=== PATIENT | female | born 1995 | race Caucasian/White ===

== ENCOUNTER 2017-06-18 21:05 | Inpatient (IN) | payer BC, OTHER ==
[~2017-06-18] VITALS: Ht 167.6 cm; Wt 76.7 kg
[~2017-06-18 21:05] MED LIST: FERR-193 PO; IBUP-974 PO; PREN-385 PO
[2017-06-18 21:10] VITALS: BP 106/56
--- NOTE | 2017-06-18 23:08 | NUR ---
PT TAKEN TO BED 3
--- NOTE | 2017-06-18 23:13 | NUR ---
Dr. Negrete evaluating patient at bedside.
--- NOTE | 2017-06-18 23:15 | NUR ---
22Y/F PT. PRESENTS TO ED WITH C/O GENERALIZED WEAKNESS X 1 WK. PT. IUP 9 WKS, N/V. NO MEDICAL HX, AAO X4, AMBULATORY WITH STEADY GAIT, GCS 15. RESPIRATIONS ROOM AIR, EVEN AND UNLABORED. ABDOMEN SOFT, NON TENDER, PT. GENERALIZED WEAKNESS. VSS, ER MADE AWARE OFPT. STATUS.
--- NOTE | 2017-06-18 23:15 | NUR ---
PER DR. ARSHAD, CHANGE NSS 1000 ML IV 100 ML/HR TO WIDE OPEN
[2017-06-18] MEDS ORDERED: NACL 0.9% 1,000 ML IV ONE (23:30)
[2017-06-19] LABS: BASOPHILS # (AUTO) 0.3 K/uL (0.00-0.22); EOSINOPHILS # (AUTO) 0.1 K/uL (0-0.4)
[2017-06-19 00:02] LABS: BASOPHILS % (AUTO) 3.3 % (0.0-2.0); EOSINOPHILS % (AUTO) 0.6 % (0.0-4.0); HEMOGLOBIN 14.1 g/dL (12.0-16.0); LYMPHOCYTES # (AUTO) 1.9 K/uL (2.5-16.5); LYMPHOCYTES % (AUTO) 20.2 % (20.5-51.1); MEAN CORPUSCULAR HEMOGLOBIN 28 pg (27-31); MEAN CORPUSCULAR HGB CONC 34 g/dL (33-37); MEAN CORPUSCULAR VOLUME 84 fL (80-94); MONOCYTES # (AUTO) 0.6 K/uL (0.8-1.0); MONOCYTES % (AUTO) 5.8 % (1.7-9.3); NEUTROPHILS # (AUTO) 6.6 K/uL (1.8-7.7); NEUTROPHILS % (AUTO) 70.1 % (42.2-75.2); PLATELET COUNT (AUTO) 182 K/uL (140-450); RED BLOOD CELL COUNT(AUTO) 4.99 MIL/uL (4.20-5.40); WHITE BLOOD COUNT (AUTO) 9.5 K/uL (4.8-10.8)
--- NOTE | 2017-06-19 00:08 | NUR ---
PT TAKEN TO ULTRASOUND
[2017-06-19 00:19] LABS: ALBUMIN 3.4 g/dL (3.4-5.0); ANION GAP 7.6 (8-16); CREATININE 1.9 mg/dL (0.6-1.3); TOTAL BILIRUBIN 1.2 mg/dL (0.0-1.0)
[2017-06-19 00:23] LABS: CARBON DIOXIDE 42.5 mmol/L (21-32); POTASSIUM 2.1 mmol/L (3.5-5.1)
[2017-06-19] MEDS ORDERED: POTASSIUM CHL 20 MEQ / DEXT 5% 1,000 ML IV ONE (00:30)
--- NOTE | 2017-06-19 01:00 | NUR ---
PT. BACK FROM US
[2017-06-19] MEDS ORDERED: ONDANSETRON 4 MG/2 ML VIAL IVP ONE (01:35)
[2017-06-19] MEDS ORDERED: HYDROcodone/APAP 7.5/325 MG 1 TAB PO PRN (01:55)
[2017-06-19] MEDS ORDERED: MORPHINE SULFATE 2 MG/ML SYR IVP PRN (01:55)
[2017-06-19] MEDS ORDERED: POTASSIUM CHLORIDE 10 MEQ TABER PO ONE (01:55)
[2017-06-19] MEDS ORDERED: ACETAMINOPHEN 325 MG TAB PO PRN (01:55)
[2017-06-19] MEDS ORDERED: DOCUSATE SODIUM 100 MG GELCAP PO PRN (01:55)
--- NOTE | 2017-06-19 02:00 | NUR ---
Patient appears to be resting comfortably in bed. Vital Signs within normal limits. Respirations even and unlabored.
[2017-06-19] MEDS ORDERED: POTASSIUM CHLORIDE 20% 40 MEQ/15 ML UDC PO ONE (02:15)
[2017-06-19] MEDS ORDERED: KCL 20 MEQ/WATER INJ PREMIX 200 ML IV ONE (02:15)
[2017-06-19 02:39] LABS: PROTHROMBIN TIME 11.1 secs (10.8-13.4)
[2017-06-19 02:46] LABS: CHOL/HDL RATIO 6.8 (1-4.5); FREE T4 (FREE THYROXINE) 6.6 ng/dL (0.76-1.46); MAGNESIUM 2.9 mg/dL (1.8-2.4); PHOSPHORUS 3.7 mg/dL (2.5-4.9); THYROID STIMULATING HORMONE 0.01 uIU/mL (0.34-3.74)
[2017-06-19] MEDS ORDERED: NACL 0.9% 1,000 ML IV ONE (02:50)
--- NOTE | 2017-06-19 03:40 | NUR ---
Patient will be admitted to care of MANDATORIAN. Admited to TELEMETRY. Will go to room 105A. Belongings list completed. Report to ZOFIA CORTEZ.
--- NOTE | 2017-06-19 03:55 | NUR ---
ADMITTED PATIENT TO THE TELE UNIT, PATIENT AWAKE ALERT ORIENTED X4, NO S/S OF DISTRESS NOTED ,RESPIRATION EVEN AND UNLABORED, IV PATENT AND INTACT, TELE MONITOR IN PLACE. ORIENTED PATIENT TO THE ROOM. PLAN OF CARE DISCUSSED, PATIENT VERBALIZED UNDERSTANDING. CALL LIGHT WITHIN REACH, SAFETY MEASURE ENSURED, WILL CONTINUE TO MONITOR.
[2017-06-19] MEDS: NACL 0.9% 1,000 ML IV SCH ×3 (03:57→20:17)
[2017-06-19 04:01] VITALS: BP 133/73
--- NOTE | 2017-06-19 05:12 | NUR ---
PATIENT WAS SLEEPING, BUT EASY TO AROUSE, NO S/S OF DISTRESS NOTED, RESPIRATION EVEN AND UNLABORED, CALL LIGHT WITHIN REACH, SAFETY MEASURE ENSURED, WILL CONTINUE TO MONITOR.
--- NOTE | 2017-06-19 06:08 | NUR ---
SECOND BAG OF POTASSIUM CHL 20 MEQ STARTED. PATIENT IS SLEEPING. NO S/S OF DISTRESS NOTED, RESPIRATION EVEN AND UNLABORED, CALL LIGHT WITHIN REACH, SAFETY MEASURE ENSURED, WILL CONTINUE TO MONITOR.
--- NOTE | 2017-06-19 06:36 | NUR ---
PATIENT HAS BEEN SCREENED AND CATEGORIZED HIGH NUTRITION RISK. PATIENT WILL BE SEEN WITHIN 1-2 DAYS OF ADMISSION. 06/19/17-06/20/17 PERLITA LINARES MS, RDN
[2017-06-19] MEDS ORDERED: MECLIZINE 25 MG TAB PO PRN (07:05)
[2017-06-19 07:16] LABS: BASOPHILS # (AUTO) 0.3 K/uL (0.00-0.22); BASOPHILS % (AUTO) 3.6 % (0.0-2.0); EOSINOPHILS # (AUTO) 0.1 K/uL (0-0.4); EOSINOPHILS % (AUTO) 1.6 % (0.0-4.0); HEMATOCRIT 34.5 % (36-48); HEMOGLOBIN 11.4 g/dL (12.0-16.0); LYMPHOCYTES % (AUTO) 26.2 % (20.5-51.1); MEAN CORPUSCULAR HEMOGLOBIN 28 pg (27-31); MEAN CORPUSCULAR HGB CONC 33 g/dL (33-37); MEAN CORPUSCULAR VOLUME 85 fL (80-94); NEUTROPHILS # (AUTO) 4.3 K/uL (1.8-7.7); NEUTROPHILS % (AUTO) 55.6 % (42.2-75.2); PLATELET COUNT (AUTO) 148 K/uL (140-450); RED BLOOD CELL COUNT(AUTO) 4.07 MIL/uL (4.20-5.40); RED CELL DISTRIBUTION WIDTH 12.3 % (11.6-13.7); WHITE BLOOD COUNT (AUTO) 7.7 K/uL (4.8-10.8)
--- NOTE | 2017-06-19 07:23 | NUR ---
ENDORSED PLAN OF CARE TO DAY RN. PATIENT RESTING IN BED, NO S/S OF DISTRESS NOTED, PATIENT IS IN STABLE CONDITION.
[2017-06-19 07:25] LABS: ANION GAP 6.9 (8-16); CARBON DIOXIDE 39.2 mmol/L (21-32); CREATININE 1.6 mg/dL (0.6-1.3); POTASSIUM 3.1 mmol/L (3.5-5.1)
--- NOTE | 2017-06-19 07:25 | NUR ---
RECEIVED REPORT FROM STRUCTURAL STEEL FITTER RN. PATIENT IS AAOX4. NO SIGNS AND SYMPTOMS OF ACUTE RESPIRATORY DISTRESS NOTED AT THIS TIME. PATIENT HAS IV D5 NORMAL SALINE INFUSING TO RIGHT AC 20G AT 120ML/HR. SITE IS CLEAN, DRY, PATENT AND INTACT. PATIENT HAS KCL INFUSING TO LEFT AC 20G AT 30 ML/HR. SITE IS CLEAN, DRY, PATENT AND INTACT. BED IN LOWEST POSITION SIDERAILS UP X2, CALL LIGHT PLACED WITHIN REACH. WILL CONTINUE TO MONITOR.
[2017-06-19 08:00] VITALS: BP 139/98
--- NOTE | 2017-06-19 09:52 | NUR ---
06/19/17 RD INITIAL ASSESSMENT COMPLETED PLEASE REFER TO NUTRITION ASSESSMENT UNDER CARE ACTIVITY FOR ESTIMATED NUTRITIONAL NEEDS. RD RECOMMENDATIONS: 1. CONTINUE NPO MEDICALLY APPROPRIATE PER MD. 2. PER MD DISCRETION, CONSIDER INITIATING ORAL NUTRITION CLEAR LIQUID DIET AND ADVANCE TOLERATED TO REGULAR DIET. 3. CONSULT RDN PRN. 4. RD WILL F/U 2-3 DAYS; HIGH RISK. PERLITA LINARES, MS, RDN
--- NOTE | 2017-06-19 12:09 | NUR ---
PATIENT REFUSED NOON VITAL SIGNS.
[2017-06-19 16:00] VITALS: BP 119/55
--- NOTE | 2017-06-19 19:40 | NUR ---
RECEIVED REPORT FROM AM RN AT BEDSIDE, PT IS AAOX4, ABLE TO FOLLOW COMMANDS AND MAKE NEEDS KNOWN. NO S/S OF DISTRESS, CLEAR LUNG SOUNDS, ON RA. DENIES CHEST PAIN, ST ON TELE MONITOR. SOFT ABDOMEN WITH ACTIVE BOWEL SOUNDS, CONTINENT WITH B&B'S, ABLE TO MOVE ALL EXTREMITIES, STABLE GAIT. PERIPHERAL LINE TO RIGHT AC 20GA RUNNING NS AT 120 ML/HR, PERIPHERAL LINE TO LEFT AC 20GA, SL. SKIN IS INTACT, WARM AND DRY TO TOUCH. VSS, DENIES PAIN. SAFETY PRECAUTION IN PLACE, WILL CONTINUE TO MONITOR.
[2017-06-19 20:00] VITALS: BP 124/69
[2017-06-19] MEDS ORDERED: ZOLPIDEM 5 MG TAB PO SCH (21:00)
[2017-06-19 21:28] LABS: BILIRUBIN,URINE NEGATIVE (NEGATIVE); BLOOD, URINE NEGATIVE (NEGATIVE); COLOR,URINE YELLOW (YELLOW); LEUKOCYTE ESTERASE ,URINE 1+ (NEGATIVE); NITRITE, URINE NEGATIVE (NEGATIVE); PH,URINE 7.5 (5.0-9.0); UGLUCOSE TRACE (NEGATIVE)
[2017-06-19 21:29] LABS: APPEARANCE,URINE HAZY (CLEAR)
[2017-06-19 21:51] LABS: RBC,URINE NONE SEEN /HPF (0-5)
[2017-06-20] VITALS: BP 138/78
--- NOTE | 2017-06-20 00:20 | NUR ---
PT IS NAUSEATED AND VOMITING SMALL AMOUNT OF EMESIS, ZOFRAN GIVEN, WILL CONTINUE TO MONITOR.
[2017-06-20 04:00] VITALS: BP 120/62
--- NOTE | 2017-06-20 04:00 | NUR ---
PT IS ASLEEP IN BED, NO CHANGE OF CONDITION AT THIS TIME, VSS.
[2017-06-20] MEDS: NACL 0.9% 1,000 ML IV SCH ×3 (05:59→22:21)
[2017-06-20 06:54] LABS: BASOPHILS # (AUTO) 0.2 K/uL (0.00-0.22); BASOPHILS % (AUTO) 3.1 % (0.0-2.0); EOSINOPHILS # (AUTO) 0.2 K/uL (0-0.4); EOSINOPHILS % (AUTO) 2.8 % (0.0-4.0); HEMATOCRIT 30.8 % (36-48); HEMOGLOBIN 10.1 g/dL (12.0-16.0); LYMPHOCYTES # (AUTO) 1.5 K/uL (2.5-16.5); LYMPHOCYTES % (AUTO) 24.1 % (20.5-51.1); MEAN CORPUSCULAR HEMOGLOBIN 28 pg (27-31); MEAN CORPUSCULAR HGB CONC 33 g/dL (33-37); MEAN CORPUSCULAR VOLUME 85 fL (80-94); MONOCYTES # (AUTO) 0.7 K/uL (0.8-1.0); MONOCYTES % (AUTO) 10.6 % (1.7-9.3); NEUTROPHILS # (AUTO) 3.7 K/uL (1.8-7.7); NEUTROPHILS % (AUTO) 59.4 % (42.2-75.2); PLATELET COUNT (AUTO) 120 K/uL (140-450); RED BLOOD CELL COUNT(AUTO) 3.62 MIL/uL (4.20-5.40); RED CELL DISTRIBUTION WIDTH 12.1 % (11.6-13.7); WHITE BLOOD COUNT (AUTO) 6.3 K/uL (4.8-10.8)
--- NOTE | 2017-06-20 07:15 | NUR ---
REPORT GIVEN TO AM RN AT BEDSIDE FOR CONTINUE OF CARE, PT IS IN STABLE CONDITION AT THIS TIME.
--- NOTE | 2017-06-20 07:15 | NUR ---
RECEIVED REPORT FROM DIRT BIKE MECHANIC RN. PATIENT IS AAOX4. NO SIGNS AND SYMPTOMS OF ACUTE RESPIRATORY DISTRESS NOTED AT THIS TIME. PATIENT HAS IV D5 NORMAL SALINE INFUSING TO RIGHT AC 20G AT 120ML/HR. SITE IS CLEAN, DRY, PATENT AND INTACT. PATIENT HAS KCL INFUSING TO LEFT AC 20G AT 30 ML/HR. SITE IS CLEAN, DRY, PATENT AND INTACT. BED IN LOWEST POSITION SIDERAILS UP X2, CALL LIGHT PLACED WITHIN REACH. WILL CONTINUE TO MONITOR.
[2017-06-20 07:22] LABS: ANION GAP 5.2 (8-16); CARBON DIOXIDE 36.6 mmol/L (21-32); CREATININE 1.1 mg/dL (0.6-1.3)
[2017-06-20 07:45] LABS: POTASSIUM 2.8 mmol/L (3.5-5.1)
[2017-06-20 08:00] VITALS: BP 117/62
[2017-06-20] MEDS ORDERED: POTASSIUM CHLORIDE 40 MEQ, LIDOCAINE 1% 25 MG in NACL 0.9% 250 ML IV SCH (08:00)
[2017-06-20] MEDS: ONDANSETRON 4 MG/2 ML VIAL IVP PRN ×3 (08:03→17:05)
--- NOTE | 2017-06-20 09:30 | NUR ---
PATIENT VOMITING, WILL ADMINISTER IV ZOFRAN. NO SIGNS AND SYMPTOMS OF DISTRESS NOTED AT THIS TIME. WILL CONTINUE TO MONITOR.
[2017-06-20] MEDS ORDERED: MULTIVIT/MIN/CA/FE/FA 1 TAB PO SCH (10:00)
[2017-06-20 12:00] VITALS: BP 125/61
--- NOTE | 2017-06-20 12:15 | NUR ---
PATIENT RESTING IN BED. WILL CONTINUE TO MONITOR.
[2017-06-20] MEDS: PYRIDOXINE 50 MG TAB PO SCH ×2 (13:00→17:00)
--- NOTE | 2017-06-20 14:00 | NUR ---
PATIENT STATING THAT HER IV HURTS. WILL START A NEW IV SITE.
--- NOTE | 2017-06-20 14:30 | NUR ---
NEW IV STARTED TO RIGHT HAND. IV SITE CLEAN, DRY, PATENT AND INTACT.
--- NOTE | 2017-06-20 14:51 | NUR ---
CM NOTE PER TECHNICAL ASSOC SONIA, NO CUSTOMS OFFICER ASSIGNED YET BUT TO SEND REVIEWS TO [facility] FAX# [phone] # [phone] OPTION 1. INITIAL REVIEW FAXED TO [phone] # [phone] OPTION 1.
[2017-06-20 16:00] VITALS: BP 120/69
--- NOTE | 2017-06-20 17:05 | NUR ---
PATIENT VOMITING AGAIN. WILL ADMINISTER ZOFRAN.
--- NOTE | 2017-06-20 19:27 | NUR ---
ENDORSED PATIENT TO NURSERY ATTENDANT RN FOR CONTINUITY OF CARE. PATIENT IN STABLE CONDITION.
--- NOTE | 2017-06-20 19:28 | NUR ---
PATIENT REPORT RECEIVED FROM MORNING NURSE AT BEDSIDE. PATIENT IS AWAKE, ALERT, AND ORIENTED. NO SIGNS AND SYMPTOMS OF DISTRESS NOTED. NO COMPLAINTS OF PAIN AT THIS TIME. FAMILY MEMBER PRESENT AT BEDSIDE. BED IN FOWLERS POSITION, SIDE RAILS UP AND CALL LIGHT WITHIN REACH. WILL CONTINUE TO MONITOR.
[2017-06-20 20:00] VITALS: BP 111/56
--- NOTE | 2017-06-20 23:00 | NUR ---
PATIENT COMPLAINED OF INSOMNIA. DR. CARRERA NOTIFIED. ORDERS RECEIVED.
[2017-06-20] MEDS ORDERED: diphenhydrAMINE 50 MG/ML VIAL IVP SCH (23:20)
[2017-06-21] VITALS: BP 119/54
--- NOTE | 2017-06-21 02:15 | NUR ---
CHECKED ON PATIENT. PATIENT IS ASLEEP, NO SIGNS AND SYMPTOMS OF DISTRESS NOTED. BREATHING EVEN AND UNLABORED. BED IN LOWEST POSITION, SIDE RAILS UP AND CALL LIGHT WITHIN REACH. WILL CONTINUE TO MONITOR.
[2017-06-21 04:00] VITALS: BP 117/60
[2017-06-21] MEDS: NACL 0.9% 1,000 ML IV SCH ×2 (07:02→15:27)
--- NOTE | 2017-06-21 07:10 | NUR ---
RECEIVED PATIENT REPORT AT BEDSIDE. PATIENT ASLEEP BUT EASILY AROUSABLE. NO S/S OF DISTRESS NOTED. NO C/O PAIN. NO ACTIVE VOMITING AT THIS TIME. IV LINE NOTED ON THE RIGHT HAND WITH IVF INFUSING WELL. PATIENT ON TELE MONITORING. BED LOWERED WITH CALL LIGHT WITHIN REACH. WILL CONTINUE TO MONITOR
--- NOTE | 2017-06-21 07:13 | NUR ---
PATIENT REPORT GIVEN TO MORNING NURSE. PATIENT IS IN STABLE CONDITION
[2017-06-21 07:52] VITALS: BP 117/59
[2017-06-21] MEDS ORDERED: POTASSIUM CHLORIDE 40 MEQ, LIDOCAINE 1% 25 MG in NACL 0.9% 250 ML IV SCH (08:00)
[2017-06-21] MEDS ORDERED: POTASSIUM CHLORIDE 10 MEQ TABER PO SCH (08:00)
[2017-06-21] MEDS ORDERED: FOLIC ACID 1 MG TAB PO SCH (09:00)
[2017-06-21] MEDS ORDERED: MULTIVIT/MIN/CA/FE/FA 1 TAB PO SCH (09:00)
[2017-06-21] MEDS: PYRIDOXINE 50 MG TAB PO SCH ×3 (09:01→17:37)
[2017-06-21 10:32] LABS: ANION GAP 7.9 (8-16); CREATININE 1.1 mg/dL (0.6-1.3)
[2017-06-21 10:33] LABS: RED BLOOD CELL COUNT(AUTO) 3.26 MIL/uL (4.20-5.40); WHITE BLOOD COUNT (AUTO) 6.4 K/uL (4.8-10.8)
[2017-06-21 10:34] LABS: BASOPHILS % (AUTO) 0.7 % (0.0-2.0); EOSINOPHILS # (AUTO) 0.2 K/uL (0-0.4); EOSINOPHILS % (AUTO) 3.3 % (0.0-4.0); HEMATOCRIT 27.7 % (36-48); HEMOGLOBIN 9.3 g/dL (12.0-16.0); LYMPHOCYTES # (AUTO) 1.3 K/uL (2.5-16.5); LYMPHOCYTES % (AUTO) 20.7 % (20.5-51.1); MEAN CORPUSCULAR HEMOGLOBIN 29 pg (27-31); MEAN CORPUSCULAR HGB CONC 34 g/dL (33-37); MEAN CORPUSCULAR VOLUME 85 fL (80-94); MONOCYTES # (AUTO) 0.5 K/uL (0.8-1.0); MONOCYTES % (AUTO) 8.4 % (1.7-9.3); NEUTROPHILS # (AUTO) 4.3 K/uL (1.8-7.7); NEUTROPHILS % (AUTO) 66.9 % (42.2-75.2); PLATELET COUNT (AUTO) 114 K/uL (140-450)
[2017-06-21 10:54] LABS: POTASSIUM 2.9 mmol/L (3.5-5.1)
--- NOTE | 2017-06-21 11:43 | NUR ---
CM NOTE CONCURRENT REVIEW FAXED TO [phone] # [phone] OPTION 1.
[2017-06-21 12:00] VITALS: BP 114/57
--- NOTE | 2017-06-21 12:25 | NUR ---
0840 RECEIVED CALL FROM CHANCE AT [facility] STATING THAT CASE WAS BEING DENIED DUE TO LACK OF CLINICAL INFORMATION AND DURING CONVERSATION SHE DID INDICATE THAT SHE HAD RECEIVED THE CLINICALS AND WOULD REVIEW. GAVE REFERENCE NUMBER [id number] AND STATED THAT THE ASSIGNED MEDICAL MANAGEMENT NURSE IS ISABELA ECHEVARRIA AT [phone].
--- NOTE | 2017-06-21 14:00 | NUR ---
PATIENT ASLEEP IN BED. NO S/S OF DISTRESS NOTED
[2017-06-21 16:27] LABS: ANION GAP 8.3 (8-16); CARBON DIOXIDE 29.9 mmol/L (21-32); CREATININE 1.2 mg/dL (0.6-1.3); POTASSIUM 4.2 mmol/L (3.5-5.1)
[2017-06-21 17:45] VITALS: BP 110/47
--- NOTE | 2017-06-21 18:43 | NUR ---
PATIENT DISCHARGED TO HOME. DISCHARGE INSTRUCTIONS GIVEN. PATIENT VERBALIZED UNDERSTANDING. IV LINE DISCONTINUED. TELE LEADS TAKEN OFF. PATIENT LEFT WITH ALL HER BELONGINGS AND DISCHARGE PAPERS. PATIENT LEFT IN STABLE CONDITION
[2017-06-24 15:09] LABS: T3 UPTAKE 53 % (24-39); T4 (THYROXINE) >25.0 ug/dL (4.5-12.0)
== END 2017-06-21 20:05 | disposition home or self-care (01) | DRG 781 ==
LOC: MED 21:05 → MTU 06-19 01:53
PROVIDERS: ADMIT Family Medicine Sports Medicine; ATTEND Family Medicine Sports Medicine
DX: O21.1 Hyperemesis gravidarum with metabolic disturbance (principal); N17.0 Acute kidney failure with tubular necrosis; O26.832 Pregnancy related renal disease, second trimester; K81.0 Acute cholecystitis; E86.0 Dehydration; R79.89 Other specified abnormal findings of blood chemistry; O99.612 Diseases of the digestive system complicating pregnancy, second trimester; R74.0 Nonspecific elevation of levels of transaminase and lactic acid dehydrogenase [LDH]; O26.892 Other specified pregnancy related conditions, second trimester; Z3A.09 9 weeks gestation of pregnancy; Z79.899 Other long term (current) drug therapy
CPT/HCPCS: 36415; 36600; 76705; 76801; 80048; 80053; 81001; 82150; 82803; 83036; 83690; 83735; 83880; 84100; 84436; 84439; 84443; 84479; 84702; 85025; 85610; 85730; 86900; 86901; 87081; 87086; 96361; 96365; 96375; 99291; J1200; J2001; J2270; J2405; J3480; J7030; J7070

== ENCOUNTER 2017-07-09 11:45 | Inpatient (IN) | payer BC, OTHER ==
[~2017-07-09] VITALS: Ht 162.6 cm; Wt 62.6 kg
--- NOTE | 2017-07-09 11:46 | NUR ---
Patient BIBA BLS, transferred to bed 3. RN evaluating patient at bedside.
--- NOTE | 2017-07-09 11:50 | NUR ---
PATIENT BIBA DUE TO SYNCOPAL EPISODE AT HOME. PER EMS SYNCOPAL WITNESSBY A FAMILY MEMBER;DENIES HITTING HER HEAD;PT STATES SHE TOOK MARIJUANA FOR HER NAUSEA;PT IS 13 WEEKS ;.SKIN IS PINK/WARM/DRY; AAOX4 WITH EVEN AND STEADY GAIT; LUNGS CLEAR BL; HR EVEN AND REGULAR; PT DENIES ANY FEVER, CP, SOB, OR COUGH AT THIS TIME; PATIENT STATES PAIN OF 0/10 AT THIS TIME;PATIENT POSITIONED FOR COMFORT; HOB ELEVATED; BEDRAILS UP X2; BED DOWN. ALL MONITORS IN PLACED;ER MD MADE AWARE OF PT STATUS.
[2017-07-09 11:56] VITALS: BP 99/53
[2017-07-09] MEDS ORDERED: NACL 0.9% 1,000 ML IV ONE (12:00)
--- NOTE | 2017-07-09 12:18 | NUR ---
MOTHER AT BEDSIDE.
--- NOTE | 2017-07-09 12:19 | NUR ---
PT CANNOT GIVE URINE AT THIS TIME;DR BUSTAMANTE NOTIFIED;
[2017-07-09 12:30] LABS: BASOPHILS # (AUTO) 0.1 K/uL (0.00-0.22); BASOPHILS % (AUTO) 1.3 % (0.0-2.0); EOSINOPHILS % (AUTO) 0.4 % (0.0-4.0); HEMATOCRIT 42.2 % (36-48); HEMOGLOBIN 13.8 g/dL (12.0-16.0); LYMPHOCYTES # (AUTO) 1.7 K/uL (2.5-16.5); LYMPHOCYTES % (AUTO) 16.1 % (20.5-51.1); MEAN CORPUSCULAR HEMOGLOBIN 27 pg (27-31); MEAN CORPUSCULAR HGB CONC 33 g/dL (33-37); MEAN CORPUSCULAR VOLUME 83 fL (80-94); MONOCYTES % (AUTO) 9.6 % (1.7-9.3); NEUTROPHILS # (AUTO) 7.7 K/uL (1.8-7.7); NEUTROPHILS % (AUTO) 72.6 % (42.2-75.2); PLATELET COUNT (AUTO) 351 K/uL (140-450); RED BLOOD CELL COUNT(AUTO) 5.09 MIL/uL (4.20-5.40); RED CELL DISTRIBUTION WIDTH 12.1 % (11.6-13.7); WHITE BLOOD COUNT (AUTO) 10.5 K/uL (4.8-10.8)
[2017-07-09 12:47] LABS: ALBUMIN 3.9 g/dL (3.4-5.0); ANION GAP 11.1 (8-16); CREATININE 3.6 mg/dL (0.6-1.3); TOTAL BILIRUBIN 1.8 mg/dL (0.0-1.0)
[2017-07-09 12:50] LABS: POTASSIUM 2.1 mmol/L (3.5-5.1)
[2017-07-09] MEDS ORDERED: POTASSIUM CHLORIDE 10 MEQ TABER PO ONE ×2 (12:55→20:40)
[2017-07-09] MEDS ORDERED: ONDANSETRON 4 MG/2 ML VIAL IVP ONE (13:00)
--- NOTE | 2017-07-09 13:06 | NUR ---
Dr. Stephens evaluating patient at bedside.
[2017-07-09] MEDS ORDERED: HYDROcodone/APAP 7.5/325 MG 1 TAB PO PRN (13:25)
[2017-07-09] MEDS ORDERED: ONDANSETRON 4 MG/2 ML VIAL IVP PRN (13:25)
--- NOTE | 2017-07-09 13:36 | NUR ---
ASKED PT IF SHE'S TAKING ANY MEDICATION AT HOME;PT STATES "NO"
[2017-07-09 13:52] LABS: PROTHROMBIN TIME 14.3 secs (10.8-13.4)
[2017-07-09] MEDS ORDERED: MECLIZINE 25 MG TAB PO PRN (13:55)
[2017-07-09 14:06] LABS: AMYLASE 264 U/L (25-115); CHOL/HDL RATIO 9.4 (1-4.5); FREE T4 (FREE THYROXINE) 3.99 ng/dL (0.76-1.46); HDL CHOLESTEROL 36 mg/dL (40-60); LDL (CALC) 173 mg/dL (60-100); LIPASE 401 U/L (73-393); PHOSPHORUS 6.9 mg/dL (2.5-4.9); THYROID STIMULATING HORMONE < 0.01 uIU/mL (0.34-3.74); TRIGLYCERIDES 643 mg/dL (30-150)
--- NOTE | 2017-07-09 14:06 | NUR ---
Patient will be admitted to care of DR DILLARD. Admited to TELE. Will go to [id number]. Belongings list completed. Report to ZOFIA BARTON.
--- NOTE | 2017-07-09 14:07 | NUR ---
THERE IS A PT IN BEDD 111B;PT WAS PUT TO PT 111 A.ZOFIA LAWLER AT BEDSIDE.
[2017-07-09] MEDS ORDERED: MULTIVIT/MIN/CA/FE/FA 1 TAB PO SCH (14:08)
[2017-07-09] MEDS: NACL 0.9% 1,000 ML IV SCH (14:10)
[2017-07-09 14:30] VITALS: BP 121/56
--- NOTE | 2017-07-09 14:45 | NUR ---
RECEIVED PT FROM ER. PT IS AWAKE. ALERT, AND ORIENTEDX4. NO S/S ACUTE DISTRESS NOTED. SKIN IS INTACT. 13 WEEKS . LOWER ABD PAIN 3/10, TOLERABLE AT THIS TIME. PT VOMITED EARLY THIS MORNING. DENIES ANY NAUSEA AND VOMITING AT THIS TIME. AMBULATORY. PT HAD SYNCOPE AT HOME, FALL AND SAFETY PRECAUTIONS IN PLACE. CALL LIGHT WITHIN REACH. MRSA DONE. VITAL SIGNS TAKEN. WILL CONTINUE TO MONITOR.
[2017-07-09] MEDS ORDERED: CALCIUM ACETATE 667 MG TAB PO SCH (14:47)
--- NOTE | 2017-07-09 16:00 | NUR ---
PT IS WITH [employer] TECH. NO S/S OF ACUTE DISTRESS NOTED. WILL CONTINUE TO MONITOR.
[2017-07-09 16:30] VITALS: BP_SYST 100; BP_SYST 111; BP_SYST 126; BP_DIAS 66; BP_DIAS 67; BP_DIAS 68
--- NOTE | 2017-07-09 16:30 | NUR ---
ORTHOSTATIC BP DONE. DOCUMENTED UNDER VITAL SIGNS. PT WAS UP WITH PHYSICAL THERAPY.
--- NOTE | 2017-07-09 18:00 | NUR ---
MADE MD AWARE OF THE ABNORMAL ELECTROLYTES AND ELEVATED LIVER ENZYMES.
--- NOTE | 2017-07-09 19:20 | NUR ---
ENDORSED PATIENT TO THE TEMPLE MARKER RN. PT IS IN STABLE CONDITION. DENIES PAIN AND VOMITING AT THIS TIME.
--- NOTE | 2017-07-09 19:21 | NUR ---
Patient's Plan of Care was discussed and reviewed with WAISTBAND SETTER: GUZMAN SEVERINO.
--- NOTE | 2017-07-09 19:46 | NUR ---
PATIENT IS CURRENTLY AWAKE ALERT RESTING IN BED AT THIS TIME NO COMPLAINS OF PAIN OR NAUSEA OR VOMITING AT THIS TIME NO COMPLAINS OF FEELING DIZZY.IVF INFUSING WELL IV SITE PATENT FALL AND SAFETY PRECAUTIONS IMPLEMENTED PATIENT ASKED TO CALL FOR ASSISTANCE IF SHE NEEDS ASSISTANCE OR FEELS DIZZY GOING TO THE BATHROOM PATIENT VERBALIZES UNDERSTANDING.CALL LIGHT WITHIN REACH WILL CONTINUE TO MONITOR.
[2017-07-09 19:54] LABS: ANION GAP 7.1 (8-16); CREATININE 2.7 mg/dL (0.6-1.3)
[2017-07-09 19:58] LABS: POTASSIUM 2.1 mmol/L (3.5-5.1)
[2017-07-09 20:00] VITALS: BP 107/59
[2017-07-09] MEDS: ONDANSETRON 4 MG/2 ML VIAL IVP PRN (20:19)
--- NOTE | 2017-07-09 20:19 | NUR ---
PATIENT WAS COMPLAINING OF FEELING NAUSEATED AND A TELEPHONE ORDER WAS OBTAINED EARLIER FOR ZOFRAN IV 4MG Q4HRS PRN FROM [facility] AND HE WAS ALSO INFORMED HE HAS A CONSULT FOR THE PATIENT. PATIENT WAS MEDICATED WITH ZOFRAN ORDERED BY ZOFIA THURMAN. WILL CONTINUE TO MONITOR.
[2017-07-09] MEDS ORDERED: POTASSIUM CHLORIDE 40 MEQ, LIDOCAINE 1% 25 MG in NACL 0.9% 250 ML IV ONE (20:30)
[2017-07-09] MEDS: DOCUSATE SODIUM 100 MG GELCAP PO SCH (20:30)
[2017-07-09] MEDS: ACETAMINOPHEN 325 MG TAB PO PRN (20:30)
--- NOTE | 2017-07-09 20:30 | NUR ---
PATIENT WAS MEDICATED WITH TYLENOL FOR TEMP 100.0 HASN'T DECREASED AFTER COOLING MEASURES.WILL CONTINUE TO MONITOR.
--- NOTE | 2017-07-09 20:40 | NUR ---
PATIENT ASSISTED TO THE BATHROOM AND BACK TO BED PATIENT REMINDED TO GET UP SLOWLY AND TO CALL FOR ASSISTANCE.PATIENT WAS ASSISTED TO THE BATHROOM AND BACK TO BED PATIENT DID WELL.CALL LIGHT WITHIN REACH.
[2017-07-09] MEDS ORDERED: KCL 20 MEQ/WATER INJ PREMIX 200 ML IV SCH (21:30)
--- NOTE | 2017-07-09 22:15 | NUR ---
PATIENT COMPLAINS OF PAIN TO IV SITE RT AC G#20 PATIENT WANTS ME TO DISCONTINUE HER IV LINE AND RESTART A NEW ONE. NEW IV LINE TO RT HAND G#22 STARTED AT FIRST ATTEMPT WITH GOOD BLOOD RETURN AND IVF INFUSING WELL.PATIENT TOLERATED PROCEDURE WELL.WILL CONTINUE TO MONITOR.CALL LIGHT WITHIN REACH.
--- NOTE | 2017-07-09 23:32 | NUR ---
PATIENT IS CURRENTLY RECEIVING FIRST BAG 20MEQ OF POTASSIUM K-RIDER IV AND IS INFUSING WELL PATIENT IS TOLERATING WELL NO COMPLAINS OF PAIN OR DISCOMFORT PATIENT CONTINUES TO SLEEP WELL AND NO NAUSEA OR VOMITING NOTED AT THIS TIME.
[2017-07-09 23:33] LABS: MAGNESIUM 2.4 mg/dL (1.8-2.4); PHOSPHORUS 5.1 mg/dL (2.5-4.9)
--- NOTE | 2017-07-10 00:27 | NUR ---
PATIENT WAS WOKEN UP FOR VITAL SIGNS AND WOKE UP IN PAIN PATIENT STATES,"MY IV HURTS A LOT I CAN'T STAND THE MEDICATION ITS BURNING PLEASE STOP IT." SO I STOPPED THE FIRST BAG OF 20MEQ POTASSIUM K-RIDER IV THAT WAS INFUSING I INFORMED ZOFIA VINCENT.I NOTIFIED RESIDENT GENESIS THAT PATIENT REFUSED THE 20MEQ KRIDER POTASSIUM IV BECAUSE SHE CANNOT STAND THE PAIN FROM THE MEDICATION INFUSING AND IS ALSO INFORMED HER THAT I ASKED THE PATIENT IF SHE WOULD RATHER TAKE TABLETS AGAIN AND PATIENT TOLD ME THAT SHE WOULD PREFER TO TAKE TABLETS INSTEAD I TOLD RESIDENT THAT EARLIER PATIENT TOOK 40MEQ OF KDUR AND SHE TOLERATED IT WELL SHE DIDN'T VOMIT.MD SAID SHE WILL PUT ORDERS.
[2017-07-10 00:30] VITALS: BP 119/67
[2017-07-10] MEDS ORDERED: POTASSIUM CHLORIDE 10 MEQ TABER PO SCH (00:30)
--- NOTE | 2017-07-10 00:47 | NUR ---
RESIDENT GENESIS CAME AND IS TALKING TO THE PATIENT.
--- NOTE | 2017-07-10 01:45 | NUR ---
I CALLED [facility] AND ASKED WHY THE MEDICATION ORDERED POTASSIUM IS TAKING LONG TIME TO BE VERIFIED HELIX COIL WINDER CHECKED MEDICATION WAS CHECKED BY HER AND APPARENTLY IT WASN'T SEEN SO IT WASN'T VERIFIED SO THEY WILL VERIFY THE MED SO I CAN GIVE IT.
--- NOTE | 2017-07-10 01:50 | NUR ---
PATIENT TOOK THE POTASSIUM SUPPLEMENT BY MOUTH WITH WATER AND WILL CONTINUE FOR ANY N/V.
--- NOTE | 2017-07-10 02:30 | NUR ---
PATIENT IS CURRENTLY SLEEPING IN NO DISTRESS WILL CONTINUE TO MONITOR.CALL LIGHT WITHIN REACH.NO N/V NOTED.
[2017-07-10] MEDS: NACL 0.9% 1,000 ML IV SCH ×3 (02:59→20:57)
[2017-07-10 04:07] VITALS: BP 134/79
[2017-07-10 04:48] LABS: BASOPHILS # (AUTO) 0.1 K/uL (0.00-0.22); BASOPHILS % (AUTO) 1.4 % (0.0-2.0); EOSINOPHILS # (AUTO) 0.2 K/uL (0-0.4); EOSINOPHILS % (AUTO) 2.9 % (0.0-4.0); HEMATOCRIT 32.9 % (36-48); LYMPHOCYTES # (AUTO) 2.6 K/uL (2.5-16.5); LYMPHOCYTES % (AUTO) 33.1 % (20.5-51.1); MEAN CORPUSCULAR HEMOGLOBIN 28 pg (27-31); MEAN CORPUSCULAR HGB CONC 33 g/dL (33-37); MEAN CORPUSCULAR VOLUME 84 fL (80-94); MONOCYTES # (AUTO) 0.9 K/uL (0.8-1.0); MONOCYTES % (AUTO) 10.7 % (1.7-9.3); NEUTROPHILS # (AUTO) 4.2 K/uL (1.8-7.7); NEUTROPHILS % (AUTO) 51.9 % (42.2-75.2); PLATELET COUNT (AUTO) 229 K/uL (140-450); RED BLOOD CELL COUNT(AUTO) 3.94 MIL/uL (4.20-5.40); RED CELL DISTRIBUTION WIDTH 12.1 % (11.6-13.7)
--- NOTE | 2017-07-10 04:55 | NUR ---
PATIENT IS CURRENTLY RESTING IN BED IVF INFUSING WELL HASN'T HAD ANY EPISODE OF NAUSEA CONTINUES TO TAKE SIPS OF WATER AND IS TOLERATING WELL AT THIS TIME.
[2017-07-10 05:03] LABS: ANION GAP 7.3 (8-16); CARBON DIOXIDE 39.4 mmol/L (21-32); CREATININE 2.3 mg/dL (0.6-1.3)
[2017-07-10 05:09] LABS: POTASSIUM 2.7 mmol/L (3.5-5.1)
[2017-07-10 05:10] LABS: MAGNESIUM 2.4 mg/dL (1.8-2.4); PHOSPHORUS 3.7 mg/dL (2.5-4.9)
[2017-07-10] MEDS ORDERED: POTASSIUM CHLORIDE 40 MEQ, LIDOCAINE 1% 25 MG in NACL 0.9% 250 ML IV ONE (05:55)
[2017-07-10] MEDS ORDERED: POTASSIUM CHLORIDE 10 MEQ TABER PO ONE (06:00)
--- NOTE | 2017-07-10 06:49 | NUR ---
MD BLISS MADE ROUND THIS MORNING UPDATED ON PATIENT'S CONDITION DURING THE NIGHT AND SHE ENTERED NEW ORDERS,ORDERS WILL BE CARRIED OUT.PATIENT DIET WAS ADVANCED TO [facility] AND PATIENT WAS GIVEN SOME CRACKERS PER MD'S REQUEST.WILL CONTINUE TO MONITOR.
--- NOTE | 2017-07-10 07:21 | NUR ---
PATIENT STABLE REPORT ENDORSED TO ZOFIA GONZALEZ.
--- NOTE | 2017-07-10 07:32 | NUR ---
RECEIVED REPORT FROM ZOFIA HERMAN. PT RESTING IN BED. AAOX4. NO S/S OF ACUTE DISTRESS. PT DENIES PAIN. IV SITE PATENT AND INTACT. PT STATES SHE FEEL NAUSEOUS. MEDICATED WITH ZOFRAN. CALL LIGHT WITHIN REACH. SAFETY MEASURES ENSURED. WILL CONTINUE TO MONITOR.
[2017-07-10 08:00] VITALS: BP 115/56
[2017-07-10] MEDS ORDERED: CALCIUM ACETATE 667 MG TAB PO SCH (08:00)
[2017-07-10] MEDS: ASCORBIC ACID 500 MG TAB PO SCH (08:28)
[2017-07-10] MEDS: DOCUSATE SODIUM 100 MG GELCAP PO SCH ×2 (08:28→20:07)
[2017-07-10] MEDS: MULTIVIT/MIN/CA/FE/FA 1 TAB PO SCH (08:28)
[2017-07-10] MEDS: FERROUS SULFATE 325 MG TABEC PO SCH (08:29)
[2017-07-10] MEDS: ONDANSETRON 4 MG/2 ML VIAL IVP PRN (08:31)
[2017-07-10] MEDS ORDERED: PANTOPRAZOLE 40 MG INJ VIAL IVP SCH (09:00)
--- NOTE | 2017-07-10 09:59 | NUR ---
PATIENT HAS BEEN SCREENED AND CATEGORIZED HIGH NUTRITION RISK. PATIENT WILL BE SEEN WITHIN 1-2 DAYS OF ADMISSION. 07/10/17-07/11/[address]
[2017-07-10 12:00] VITALS: BP 108/70
[2017-07-10 12:51] LABS: ANION GAP 8.7 (8-16); CARBON DIOXIDE 37.2 mmol/L (21-32)
[2017-07-10 12:55] LABS: POTASSIUM 2.9 mmol/L (3.5-5.1)
[2017-07-10] MEDS ORDERED: POTASSIUM CHLORIDE 40 MEQ, LIDOCAINE 1% 25 MG in NACL 0.9% 250 ML IV SCH (13:30)
--- NOTE | 2017-07-10 14:37 | NUR ---
PT RESTING IN BED. NO S/S OF ACUTE DISTRESS. PT DENIES PAIN. CALL LIGHT WITHIN REACH. WILL CONTINUE TO MONITOR.
[2017-07-10 16:00] VITALS: BP 118/65
--- NOTE | 2017-07-10 16:55 | NUR ---
PT AMBULATED TO BATHROOM. NO S/S OF ACUTE DISTRESS. WILL CONTINUE TO MONITOR.
[2017-07-10 18:25] LABS: ANION GAP 8.7 (8-16); CARBON DIOXIDE 35.5 mmol/L (21-32); CREATININE 1.9 mg/dL (0.6-1.3); POTASSIUM 3.2 mmol/L (3.5-5.1)
--- NOTE | 2017-07-10 19:12 | NUR ---
ENDORSED PLAN OF CARE TO NIGHT RN. PT REMAINS STABLE.
--- NOTE | 2017-07-10 19:13 | NUR ---
RECD. RESTING IN BED, AWAKE, A/OX4. RESPIRATION EVEN AND UNLABORED. IV OF NS AT 100 ML/HR INFUSING, RIGHT HAND G 22. STATED STILL OCCASIONAL FEELING OF NAUSEA, ABLE TO EAT 25% OF MEAL TRAY. PLAN OF CARE FOR THE SHIFT DISCUSSED. SAFETY MEASURES ENFORCED. CALL LIGHT INREAVERBALIZED UNDERSTANDING. DENIES PAIN . Addendum: 07/10/17 at 1941 by Mariam Wade LVN CORRECTION OF ENTRY: CALL LIGHT IN REACH. PLAN OF CARE FOR THE SHIFT DISCUSSED.
--- NOTE | 2017-07-10 19:45 | NUR ---
CONVERSING WITH VISITOR AT THE BEDSIDE. COMPLAINING OF SORENESS BEHIND THE NECK. WILL INFORMED RESIDENT ON DUTY, WILL REQUEST TO EXAMINE PATIENT'S NECK.
--- NOTE | 2017-07-10 19:53 | NUR ---
ENDORSED TO SAVANA HINDS FOR CONTINUITY OF CARE.
--- NOTE | 2017-07-10 19:54 | NUR ---
PATIENT IS CURRENTLY AWAKE ALERT ORIENTED RESTING IN BED DENIES FEELING NAUSEATED AT THIS TIME. MOTHER BROUGHT HER FOOD A HAMBURGER AND FRIES AND PATIENT ATE MOST OF THE FOOD AND TOLERATING IT WELL AND ALSO DRINKING WATER.PATIENT CONTINUES TO ENCOURAGE TO CALL FOR ASSISTANCE.PATIENT VERBALIZES UNDERSTANDING AND IS ABLE TO MAKE NEEDS KNOWN.WILL CONTINUE TO MONITOR PATIENT IS CURRENTLY WITH MOTHER TALKING.
[2017-07-10 20:00] VITALS: BP 123/65
[2017-07-10] MEDS: ACETAMINOPHEN 325 MG TAB PO PRN (20:08)
--- NOTE | 2017-07-10 21:00 | NUR ---
Patient's Plan of Care was discussed and reviewed with ENTREPRENEUR: GUZMAN SEVERINO
[2017-07-10] MEDS ORDERED: POTASSIUM CHLORIDE 20% 40 MEQ/15 ML UDC PO SCH (21:40)
--- NOTE | 2017-07-10 21:53 | NUR ---
RESIDENT GENESIS AWARE THAT PATIENT'S POTASSIUM IS 3.2 EARLIER AND MD GAVE ORDERS.ORDERS CARRIED OUT.PATIENT WAS GIVEN SOME JUICE SO SHE CAN TAKE HER MEDS.
--- NOTE | 2017-07-10 22:40 | NUR ---
SAUL APPLIED TO NECK ORDERED BY MD RESIDENT HURTADO FOR PATIENT'S NECK PAIN.SHE ALSO CAME TO SEE AND SPOKE TO THE PATIENT.
[2017-07-11 00:56] VITALS: BP 128/66
--- NOTE | 2017-07-11 01:55 | NUR ---
PATIENT HAD REQUESTED FOR POPSICLES AND GROUNDS CREW SUPERVISOR REYMUNDO INFORMED AND SHE BROUGHT SOME POPSICLES FOR THE PATIENT PATIENT CONTINUES TO BE WELL NO COMPLAINS OF N/V NOTED OR PAIN.PATIENT STATES,"THE K-PAD TO HER NECK IS WORKING FINE."WILL CONTINUE TO MONITOR.
--- NOTE | 2017-07-11 01:55 | NUR ---
PATIENT IV KEEPS BEEPING BECAUSE PATIENT KEEPS BENDING HER ARM PATIENT CURRENTLY USING HER PHONE AND MOVING ABOUT IN BED.IV WAS FLUSHED WITH NORMAL SALINE AND ITS CURRENTLY PATENT THERE IS BLOOD RETURN BUT PATIENT IS ASKING ME IF SHE STILL NEEDS IVF THEN PATIENT STATES,"I'VE BEEN DRINKING WATER AND HAVEN'T FELT NAUSEATED." SO I TOLD THE PATIENT I WILL ASK MD LANIER.
--- NOTE | 2017-07-11 01:56 | NUR ---
MD LANIER CALLED AND ASKED THAT PATIENT WAS ASKING IF ITS STILL NECESSARY FOR HER TO STILL HAVE IVFLUIDS BECAUSE SHE HAS BEEN EATING AND DRINKING FINE.I INFORMED MD LANIER AND SHE GAVE NEW ORDERS.
--- NOTE | 2017-07-11 02:45 | NUR ---
PATIENT DOING WELL IS CURRENTLY AWAKE PLAYING WITH HER PHONE.JENNIFFER PAIN AND DENIES N/V.CALL LIGHT WITHIN REACH WILL CONTINUE TO MONITOR.
--- NOTE | 2017-07-11 03:39 | NUR ---
PATIENT SLEEPING IN BED NO DISTRESS WILL CONTINUE TO MONITOR.CALL LIGHT WITHIN REACH
[2017-07-11] MEDS: NACL 0.9% 1,000 ML IV SCH (05:24)
[2017-07-11] MEDS: ONDANSETRON 4 MG/2 ML VIAL IVP PRN ×2 (06:55→17:24)
--- NOTE | 2017-07-11 06:55 | NUR ---
PATIENT VOMITED AND WAS MEDICATED WITH ZOFRAN IV BY ZOFIA THURMAN. IVF INFUSING WELL.
[2017-07-11 07:16] LABS: BASOPHILS # (AUTO) 0.1 K/uL (0.00-0.22); EOSINOPHILS # (AUTO) 0.3 K/uL (0-0.4); EOSINOPHILS % (AUTO) 3.7 % (0.0-4.0); HEMOGLOBIN 9.1 g/dL (12.0-16.0); LYMPHOCYTES # (AUTO) 2.4 K/uL (2.5-16.5); LYMPHOCYTES % (AUTO) 29.9 % (20.5-51.1); MEAN CORPUSCULAR HEMOGLOBIN 28 pg (27-31); MEAN CORPUSCULAR HGB CONC 33 g/dL (33-37); MEAN CORPUSCULAR VOLUME 85 fL (80-94); MONOCYTES # (AUTO) 0.7 K/uL (0.8-1.0); MONOCYTES % (AUTO) 8.6 % (1.7-9.3); NEUTROPHILS # (AUTO) 4.4 K/uL (1.8-7.7); NEUTROPHILS % (AUTO) 56.8 % (42.2-75.2); PLATELET COUNT (AUTO) 186 K/uL (140-450); RED CELL DISTRIBUTION WIDTH 12.3 % (11.6-13.7); WHITE BLOOD COUNT (AUTO) 7.9 K/uL (4.8-10.8)
[2017-07-11 07:22] LABS: ANION GAP 6.8 (8-16); CARBON DIOXIDE 35.2 mmol/L (21-32); CREATININE 1.2 mg/dL (0.6-1.3)
[2017-07-11 07:26] LABS: MAGNESIUM 1.6 mg/dL (1.8-2.4); PHOSPHORUS 1.1 mg/dL (2.5-4.9)
--- NOTE | 2017-07-11 07:33 | NUR ---
PATIENT SLEEPING IN BED AT THIS TIME REPORT ENDORSED TO SAVANA LEYVA HE WILL RESUME CARE OF THE PATIENT.
[2017-07-11 08:00] VITALS: BP 119/59
[2017-07-11] MEDS: FERROUS SULFATE 325 MG TABEC PO SCH (08:32)
[2017-07-11] MEDS: MULTIVIT/MIN/CA/FE/FA 1 TAB PO SCH (08:32)
[2017-07-11] MEDS: DOCUSATE SODIUM 100 MG GELCAP PO SCH (08:32)
[2017-07-11] MEDS: ASCORBIC ACID 500 MG TAB PO SCH (08:32)
--- NOTE | 2017-07-11 09:15 | NUR ---
INFORMED DR. VILLANUEVA ABOUT PT. K 3.0, MAG 1.6. ALSO INFORMED CHARGE NURSE FARRAH FALCON.
[2017-07-11] MEDS ORDERED: MAG SULF 2000 MG/WATER PREMIX 50 ML IV SCH (11:00)
[2017-07-11 12:00] VITALS: BP 131/74
[2017-07-11] MEDS ORDERED: POTASSIUM CHLORIDE 20% 40 MEQ/15 ML UDC PO SCH (13:30)
[2017-07-11] MEDS ORDERED: POTASSIUM CHLORIDE 40 MEQ, LIDOCAINE 1% 25 MG in NACL 0.9% 250 ML IV SCH (14:00)
--- NOTE | 2017-07-11 15:16 | NUR ---
CM NOTE INITIAL REVIEW FAXED TO [facility] [employer]PUT[employer] SUPPORT SPECIALIST INSTRUCTOR / FAX# [phone], C: [phone], OPT. 1
--- NOTE | 2017-07-11 15:36 | NUR ---
PHYSICAL THERAPIST CAME FOR PT. PHYSICAL THERAPIST EVAL AND TREATMENT.
--- NOTE | 2017-07-11 16:50 | NUR ---
DR. VILLANUEVA CAME AND SPOKE TO PT. AT BEDSIDE.
[2017-07-11] MEDS ORDERED: PRETAB PO (16:57)
[2017-07-11] MEDS ORDERED: ONDA4TAB PO (16:57)
[2017-07-11] MEDS ORDERED: MECL-272 PO (16:57)
--- NOTE | 2017-07-11 17:12 | NUR ---
EXPLAINED TO PT. ABOUT MD D/C ORDER, D/C INSTRUCTIONS AND TEACHING, EDUCATED ABOUT MD D/C PRESCRIPTION THAT WAS ARRANGED BY MD ABREU PT. PREFERRED PHARMACY, DR. ALLISON WALTERS FOLLOW UP APPOINTMENT ON 07/13/2017 AT 9:10 AM, DIAGNOSIS, DIET, PAIN MANAGEMENT TEACHING. VERBALIZED UNDERSTANDING. ALSO EXPLAINED ABOUT FLU VACCINE, PT. STATES "I ALREADY HAD FLU VACCINE THIS CURRENT FLU SEASON AND I DON'T NEED ANOTHER ONE." ASKED PT. FOR ANY CONCERN OR QUESTION. NO QUESTION OR CONCERN RECEIVED FROM PT..
--- NOTE | 2017-07-11 18:35 | NUR ---
D/C HOME VIA WHEELCHAIR ACCOMPANIED BY PT. . AWAKE, ALERT, AND ORIENTED X4. SPEECH CLEAR. NO C/O PAIN. NO C/O N/V. NO SOB, NOTED. IN STABLE CONDITION. INFORMED CHARGE NURSE FARRAH FALCON.
[2017-07-12 12:47] LABS: FOLIC ACID 5.3 ng/mL (>3.0)
== END 2017-07-11 18:35 | disposition home or self-care (01) | DRG 781 ==
LOC: MED 11:45 → MTU 13:30
PROVIDERS: ADMIT Student in an Organized Health Care Education/Training Program; ATTEND Student in an Organized Health Care Education/Training Program
DX: O21.1 Hyperemesis gravidarum with metabolic disturbance (principal); N17.0 Acute kidney failure with tubular necrosis; K85.90 Acute pancreatitis without necrosis or infection, unspecified; O99.351 Diseases of the nervous system complicating pregnancy, first trimester; O99.281 Endocrine, nutritional and metabolic diseases complicating pregnancy, first trimester; O26.891 Other specified pregnancy related conditions, first trimester; E03.9 Hypothyroidism, unspecified; E78.5 Hyperlipidemia, unspecified; O99.611 Diseases of the digestive system complicating pregnancy, first trimester; K80.20 Calculus of gallbladder without cholecystitis without obstruction; O99.011 Anemia complicating pregnancy, first trimester; D64.9 Anemia, unspecified; O25.11 Malnutrition in pregnancy, first trimester; Z91.14 Patient's other noncompliance with medication regimen; Z3A.12 12 weeks gestation of pregnancy
CPT/HCPCS: 36415; 76705; 76801; 80048; 80053; 82150; 82607; 82728; 82746; 83036; 83540; 83690; 83735; 83880; 84100; 84439; 84443; 84484; 85025; 85045; 85610; 85730; 87081; 93005; 93880; 96361; 96374; 97110; 97116; 97530; 99285; J2001; J2405; J3475; J3480; J7030; J8597; Q0092

== ENCOUNTER 2017-07-26 19:00 | Inpatient (IN) | payer BC, OTHER ==
[~2017-07-26] VITALS: Ht 162.6 cm; Wt 68.5 kg
[~2017-07-26 19:00] MED LIST changes: -FERR-193 PO; -IBUP-974 PO; +MECL-272 PO; +ONDA4TAB PO; -PREN-385 PO; +PRETAB PO
[2017-07-26 19:44] VITALS: BP 144/78
--- NOTE | 2017-07-26 19:57 | NUR ---
22 Y/O F 2 1/2 MTHS W/C/O UPPER ABD PAIN, N/V X 2 DAYS. PT DENIES ANY MED HX. MARCO LUCAS MADE AWARE.
--- NOTE | 2017-07-26 20:10 | NUR ---
PT RESTING IN BED, VSS. NO S/S OF DISTRESS NOTED AT THE MOMENT.
[2017-07-26] MEDS ORDERED: NACL 0.9% 1,000 ML IV ONE (20:20)
[2017-07-26] MEDS ORDERED: ONDANSETRON 4 MG/2 ML VIAL IVP ONE (20:20)
[2017-07-26] MEDS ORDERED: PROMETHAZINE 25 MG/ML VIAL IM ONE (20:20)
[2017-07-26 20:49] LABS: BASOPHILS % (AUTO) 0.4 % (0.0-2.0); EOSINOPHILS % (AUTO) 0.3 % (0.0-4.0); HEMATOCRIT 28.7 % (36-48); HEMOGLOBIN 9.7 g/dL (12.0-16.0); LYMPHOCYTES # (AUTO) 0.8 K/uL (2.5-16.5); LYMPHOCYTES % (AUTO) 6.2 % (20.5-51.1); MEAN CORPUSCULAR HEMOGLOBIN 29 pg (27-31); MEAN CORPUSCULAR HGB CONC 34 g/dL (33-37); MEAN CORPUSCULAR VOLUME 85 fL (80-94); MONOCYTES # (AUTO) 0.3 K/uL (0.8-1.0); MONOCYTES % (AUTO) 2.5 % (1.7-9.3); NEUTROPHILS # (AUTO) 11.2 K/uL (1.8-7.7); NEUTROPHILS % (AUTO) 90.6 % (42.2-75.2); PLATELET COUNT (AUTO) 261 K/uL (140-450); RED BLOOD CELL COUNT(AUTO) 3.38 MIL/uL (4.20-5.40); RED CELL DISTRIBUTION WIDTH 14.3 % (11.6-13.7); WHITE BLOOD COUNT (AUTO) 12.3 K/uL (4.8-10.8)
[2017-07-26 21:07] LABS: ALBUMIN 3.1 g/dL (3.4-5.0); ANION GAP 16.7 (8-16); CARBON DIOXIDE 24.8 mmol/L (21-32); CREATININE 0.8 mg/dL (0.6-1.3); TOTAL BILIRUBIN 0.5 mg/dL (0.0-1.0)
[2017-07-26 21:11] LABS: POTASSIUM 2.5 mmol/L (3.5-5.1)
[2017-07-26] MEDS ORDERED: POTASSIUM CHLORIDE 40 MEQ, LIDOCAINE 1% 25 MG in NACL 0.9% 250 ML IV ONE (21:40)
[2017-07-26] MEDS ORDERED: ACETAMINOPHEN 325 MG TAB PO PRN (21:50)
[2017-07-26] MEDS ORDERED: MECLIZINE 25 MG TAB PO PRN (21:50)
--- NOTE | 2017-07-26 22:14 | NUR ---
PT TRANSFERRED TO FLOOR VIA GURNEY, ACCOMPANIED BY RN AND EMT.
[2017-07-26 22:15] VITALS: BP 113/66
--- NOTE | 2017-07-26 22:15 | NUR ---
PT ARRIVED AT UNIT VIA GURNEY, PT STABLE, NO DISTRESS NOTED, RECEIVED BEDSIDE REPORT FROM ER NURSE YOSELYN ARMIJO, IV TO R AC 20 G SL, PATENT, SKIN INTACT, PT AAOX4, REPORTED HAVING NO PAIN, INITIAL ASSESSMENT DONE, ALL SAFETY PRECAUTION MET, WILL CONTINUE TO MONITOR.
--- NOTE | 2017-07-26 22:17 | NUR ---
Patient will be admitted to care of DR POSEY. Admited to TELEMETRY. Will go to room 111B. Belongings list completed. Report to ZOFIA NAVA AT BEDSIDE.
[2017-07-26] MEDS: POTASSIUM CHLORIDE 10 MEQ TABER PO ONE ×2 (22:21→22:48)
[2017-07-26] MEDS: NACL 0.9% 1,000 ML IV SCH (22:36)
[2017-07-26 22:37] LABS: PROTHROMBIN TIME 11.2 secs (10.8-13.4)
[2017-07-26 22:39] LABS: MAGNESIUM 1.7 mg/dL (1.8-2.4); PHOSPHORUS 3.5 mg/dL (2.5-4.9)
[2017-07-26] MEDS ORDERED: DEXTROSE 50% 50 ML SYR IVP PRN (22:40)
[2017-07-26] MEDS ORDERED: INSULIN LISPRO SLIDING SCALE 100 UNITS/ML VIAL SUBQ PRN (22:40)
[2017-07-26] MEDS ORDERED: POTASSIUM CHLORIDE 40 MEQ in NACL 0.9% 1,000 ML IV SCH (23:00)
[2017-07-26] MEDS ORDERED: MAG SULF 2000 MG/WATER PREMIX 50 ML IV ONE (23:10)
--- NOTE | 2017-07-26 23:21 | NUR ---
PT REFUSED MEDICATION POTASSIUM, STATED THAT SHE IS FEELING NAUSEOUS AND DOES NOT WANT TO TAKE IT. CONFIRMED WITH DR. WEST. PT STABLE, SLEEPING, NO DISTRESS NOTED, CALL LIGHT WITHIN REACH, WILL CONTINUE TO MONITOR.
[2017-07-27] VITALS: BP 120/78
[2017-07-27] MEDS: PROMETHAZINE 25 MG/ML VIAL IVP PRN ×3 (02:29→22:29)
--- NOTE | 2017-07-27 02:29 | NUR ---
PT VOMITED, NAUSEA MEDICATION GIVEN, PT TOLERATED WELL, STILL COMPLAINS OF NAUSEA. WILL CONTINUE TO MONITOR.
[2017-07-27] MEDS ORDERED: KCL 20 MEQ/WATER INJ PREMIX 200 ML IV SCH (02:30)
--- NOTE | 2017-07-27 02:39 | NUR ---
PT STILL VOMITING, MEDICATION ADMINISTERED TO PT, PT TOLERATED WELL, NO DISTRESS NOTED, CALL LIGHT WITHIN REACH, WILL CONTINUE TO MONITOR.
[2017-07-27] MEDS ORDERED: KCL 20 MEQ/WATER INJ PREMIX 100 ML IV ONE ×2 (02:58→03:03)
[2017-07-27 04:00] VITALS: BP 110/52
--- NOTE | 2017-07-27 04:34 | NUR ---
PT VOMITED 2 MORE TIMES, NOTIFY DR. JENNA DR TO PUT IN ORDER, WILL CONTINUE WITH ORDERS.
[2017-07-27] MEDS ORDERED: ONDANSETRON 4 MG/2 ML VIAL ONE (05:13)
[2017-07-27] MEDS: ONDANSETRON 8 MG in NACL 0.9% 50 ML IV PRN ×2 (05:55→18:31)
[2017-07-27] MEDS: PROPYLTHIOURACIL 50 MG TAB PO SCH ×3 (06:03→22:27)
--- NOTE | 2017-07-27 06:04 | NUR ---
PT REFUSED MEDICATION, STATED THAT SHE IS REALLY NAUSEATED AND WOULD NOT BE ABLE TO TAKE THE MEDICATION. PT STABLE, NO DISTRESS NOTED, CALL LIGHT WITHIN REACH, WILL CONTINUE TO MONITOR.
[2017-07-27] MEDS: BLOOD GLUCOSE MONITORING 1 DEV DEV FS SCH ×4 (06:05→20:54)
[2017-07-27 06:47] LABS: BASOPHILS % (AUTO) 0.4 % (0.0-2.0); EOSINOPHILS # (AUTO) 0.1 K/uL (0-0.4); EOSINOPHILS % (AUTO) 0.7 % (0.0-4.0); HEMATOCRIT 26.6 % (36-48); LYMPHOCYTES # (AUTO) 0.8 K/uL (2.5-16.5); LYMPHOCYTES % (AUTO) 8.5 % (20.5-51.1); MEAN CORPUSCULAR HEMOGLOBIN 28 pg (27-31); MEAN CORPUSCULAR HGB CONC 34 g/dL (33-37); MEAN CORPUSCULAR VOLUME 83 fL (80-94); MONOCYTES # (AUTO) 0.3 K/uL (0.8-1.0); NEUTROPHILS # (AUTO) 7.9 K/uL (1.8-7.7); NEUTROPHILS % (AUTO) 87.4 % (42.2-75.2); PLATELET COUNT (AUTO) 237 K/uL (140-450); RED BLOOD CELL COUNT(AUTO) 3.19 MIL/uL (4.20-5.40); RED CELL DISTRIBUTION WIDTH 14.6 % (11.6-13.7); WHITE BLOOD COUNT (AUTO) 9.1 K/uL (4.8-10.8)
[2017-07-27 07:03] LABS: ANION GAP 15.1 (8-16); CARBON DIOXIDE 24.2 mmol/L (21-32); CREATININE 0.6 mg/dL (0.6-1.3); POTASSIUM 3.3 mmol/L (3.5-5.1)
[2017-07-27 07:09] LABS: MAGNESIUM 2.4 mg/dL (1.8-2.4); PHOSPHORUS 2.8 mg/dL (2.5-4.9)
--- NOTE | 2017-07-27 07:25 | NUR ---
GAVE BEDSIDE REPORT TO DAY SHIFT NURSE SABAS ARMIJO, ENDORSED PLAN OF CARE, PT STABLE, NO DISTRESS NOTED, CALL LIGHT WITHIN REACH.
--- NOTE | 2017-07-27 07:26 | NUR ---
RECEIVED REPORT FROM CASING FINISHER AND STUFFER NURSE AT BEDSIDE FOR CONTINUITY OF CARE. UPDATED THE BOARD. PATIENT IS SLEEPING. N0 SIGNS OF DISTRESS NOTED. IV ON RIGHT FA 22 G INFUSING NS AT 50ML/HR, ASYMPTOMATIC, PATENT AND INTACT. SKIN INTACT. PT ON RA. SAFETY PRECAUTIONS IN PLACE, BED ON LOWEST SETTING, CALL LIGHT WITHIN REACH. WILL CONTINUE TO MONITOR PATIENT.
[2017-07-27 08:00] VITALS: BP 131/67
--- NOTE | 2017-07-27 08:52 | NUR ---
PATIENT HAS BEEN SCREENED AND CATEGORIZED HIGH NUTRITION RISK. PATIENT WILL BE SEEN WITHIN 1-2 DAYS OF ADMISSION. 07/27/[address]
[2017-07-27] MEDS: DOCUSATE SODIUM 100 MG GELCAP PO SCH ×2 (09:04→22:27)
[2017-07-27] MEDS: METOPROLOL 25 MG TAB PO SCH ×2 (09:05→22:26)
[2017-07-27] MEDS: PYRIDOXINE 50 MG TAB PO SCH (09:06)
--- NOTE | 2017-07-27 09:06 | NUR ---
ADMINISTERED MORNING MEDS, PATIENT TOLERATED THEM WELL. WILL CONTINUE TO MONITOR PATIENT.
[2017-07-27] MEDS ORDERED: POTASSIUM CHLORIDE 10 MEQ TABER PO SCH (10:00)
--- NOTE | 2017-07-27 10:02 | NUR ---
K DUR 20 MEQ TABLETS NOT ADMINISTERED. PATIENT IS NAUSEATED AND VOMITING SO IS REFUSING THE MEDICATION. SAFETY PRECAUTIONS IN PLACE. WILL CONTINUE TO MONITOR PATIENT.
[2017-07-27 12:00] VITALS: BP 109/66
--- NOTE | 2017-07-27 12:15 | NUR ---
ENDORSED CARE TO KIRBY RN AT BEDSIDE FOR CONTINUITY OF CARE. PATIENT IS SLEEPING. NO SIGNS OF DISTRESS NOTED. PATIENT IS IN STABLE CONDITION.
--- NOTE | 2017-07-27 12:20 | NUR ---
RECEIVED REPORT FROM DAY RN. PATIENT SLEEPING, NO S/S OF ACUTE DISTRESS NOTED.
[2017-07-27 12:54] LABS: BARBITURATE, URINE NEG. ng/ml (NEG <=200); BENZODIAZEPINE, URINE NEG. ng/mL (NEG <=200); CANNABINOID, URINE POS. ng/mL (NEG <=50); COCAINE, URINE NEG. ng/mL (NEG <=300); OPIATE, URINE NEG. ng/mL (NEG <=2000); PHENCYCLIDINE SCREEN,URINE NEG. ng/mL (NEG <=25)
[2017-07-27 13:13] LABS: BILIRUBIN,URINE 1+ (NEGATIVE); BLOOD, URINE NEGATIVE (NEGATIVE); COLOR,URINE YELLOW (YELLOW); LEUKOCYTE ESTERASE ,URINE 1+ (NEGATIVE); NITRITE, URINE NEGATIVE (NEGATIVE); PH,URINE 6.5 (5.0-9.0); UGLUCOSE NEGATIVE (NEGATIVE)
--- NOTE | 2017-07-27 13:44 | NUR ---
PATIENT REFUSED LUNCH, UNABLE TO TOLERATE CLEAR LIQUIDS AT THIS TIME, REFUSED MEDICATIONS. DR. GENESIS JAIMES.
--- NOTE | 2017-07-27 13:59 | NUR ---
07/27/17 RD INITIAL ASSESSMENT COMPLETED PLEASE REFER TO NUTRITION ASSESSMENT UNDER CARE ACTIVITY FOR ESTIMATED NUTRITIONAL NEEDS. 1.DIET TO ADVANCE TOLERATED FOR IMPROVED ENERGY AND PROTEIN INTAKE 2.RD TO FOLLOW-UP 2-3 DAYS, HIGH RISK ASPEN GRANT, RD
--- NOTE | 2017-07-27 14:00 | NUR ---
PER SONIA INSTRUCTIONAL DESIGN MANAGER. FROM LILIANA FROM [employer], NO CM ASSIGNED YET BUT FAX REVIEW TO [phone]. FAXED INITIAL REVIEW.
[2017-07-27 14:52] LABS: APPEARANCE,URINE SLIGHTLY CLOUDY (CLEAR); RBC,URINE 0-5 (RARE) /HPF (0-5); WBC,URINE 16-25 (MOD) /HPF (0-5)
[2017-07-27 16:00] VITALS: BP 132/75
--- NOTE | 2017-07-27 16:00 | NUR ---
PATIENT HAD EPISODE OF NAUSEA WITH VOMITING, MEDICATED ORDERED. LINENS CHANGED, CLEAN AND DRY.
--- NOTE | 2017-07-27 16:48 | NUR ---
MD AWARE OF K 3.3, NO NEW ORDERS TODAY REGARDING LABS.
--- NOTE | 2017-07-27 19:35 | NUR ---
SBAR REPORT GIVEN TO RN JAMES AT PT BEDSIDE. PATIENT STATES FEELING BETTER AFTER ZOFRAN ADMINISTRATION. NO S/S OF ACUTE DISTRESS, FAMILY AT BEDSIDE.
--- NOTE | 2017-07-27 19:35 | NUR ---
RECEIVED PT IN STABLE CONDITION FROM AM NURSE. AWAKE,ALERT AND ORIENTED X4. ON TELE MONITOR/ AMBULATORY. WITH IVF INFUSING WELL ON THERE RT HAND #22. CLEAR AND PATENT. NO NAUSEA NOTED AT THIS TIME. PLAN OF CARE DISCUSSED AND VERBALIZED UNDERSTANDING. CALL LIGHT PLACED WITHIN EASY REACH. WILL CONTINUE TO MONITOR.
[2017-07-27 20:00] VITALS: BP 119/67
[2017-07-27] MEDS: NACL 0.9% 1,000 ML IV SCH ×2 (20:53→21:58)
--- NOTE | 2017-07-27 22:30 | NUR ---
PT VOMITED . UNABLE TO TAKE PO MEDS DUE. PHENERGAN IVP GIVEN ORDERED. WILL CONTINUE TO MONITOR.
[2017-07-28 00:09] VITALS: BP 137/84
--- NOTE | 2017-07-28 01:00 | NUR ---
SLEEPING AT THIS TIME. NO S/S OF ANY DISCOMFORT NOTED.
--- NOTE | 2017-07-28 03:15 | NUR ---
PT VOMITED AGAIN. MED NOT DUE YET. PAGED DR. WEST AND MADE SOME CHANGES ON THE ORDER FOR ZOFRAN IV.
[2017-07-28] MEDS: ONDANSETRON 4 MG/2 ML VIAL IVP PRN ×3 (03:30→17:59)
[2017-07-28 04:34] VITALS: BP 127/77
[2017-07-28] MEDS: PROPYLTHIOURACIL 50 MG TAB PO SCH ×3 (05:00→21:00)
--- NOTE | 2017-07-28 05:00 | NUR ---
PT STILL UNABLE TO TAKE PO MEDS AT THIS TIME DUE TO NAUSEA.
[2017-07-28] MEDS: BLOOD GLUCOSE MONITORING 1 DEV DEV FS SCH ×4 (06:07→21:00)
--- NOTE | 2017-07-28 06:10 | NUR ---
BLOOD SUGAR WAS CHECKED THIS AM RESULT 85. WITH IVF INFUSING.
--- NOTE | 2017-07-28 07:12 | NUR ---
LUCINDA PT IN STABLE CONDITION TO AM NURSE.
--- NOTE | 2017-07-28 07:13 | NUR ---
RECEIVED SBAR REPORT FROM JAMES RN AT PT BEDSIDE. PATIENT SLEEPING, EASILY AWAKENS. DENIES NAUSEA AT THIS TIME. DENIES PAIN/DISCOMFORT. ALERT AND ORIENTED. CALL LIGHT WITHIN REACH. IV SITE PATENT AND INTACT.
[2017-07-28 07:54] LABS: ANION GAP 17.3 (8-16); CARBON DIOXIDE 22.4 mmol/L (21-32); CREATININE 0.5 mg/dL (0.6-1.3)
[2017-07-28 08:00] VITALS: BP 121/73
[2017-07-28 08:32] LABS: POTASSIUM 2.7 mmol/L (3.5-5.1)
--- NOTE | 2017-07-28 08:45 | NUR ---
DR. HURTADO MADE AWARE OF K 2.7MD TO PLACE ORDERS.
[2017-07-28] MEDS: METOPROLOL 25 MG TAB PO SCH ×2 (09:00→21:00)
[2017-07-28] MEDS: PYRIDOXINE 50 MG TAB PO SCH (09:42)
[2017-07-28] MEDS: DOCUSATE SODIUM 100 MG GELCAP PO SCH ×2 (09:42→21:00)
--- NOTE | 2017-07-28 10:00 | NUR ---
PATIENT MEDICATED FOR NAUSEA, TOLERATED PO MEDICATIONS. PATIENT RESTING, NO S/S OF ACUTE DISTRESS NOTED.
--- NOTE | 2017-07-28 11:40 | NUR ---
SBAR REPORT GIVEN TO ZOFIA FUENTES AT PT BEDSIDE. NO S/S OF ACUTE DISTRESS NOTED.
[2017-07-28 11:42] LABS: BASOPHILS # (AUTO) 0.1 K/uL (0.00-0.22); BASOPHILS % (AUTO) 0.9 % (0.0-2.0); EOSINOPHILS % (AUTO) 0.3 % (0.0-4.0); HEMATOCRIT 26.7 % (36-48); HEMOGLOBIN 8.6 g/dL (12.0-16.0); LYMPHOCYTES # (AUTO) 1.2 K/uL (2.5-16.5); LYMPHOCYTES % (AUTO) 13.2 % (20.5-51.1); MEAN CORPUSCULAR HEMOGLOBIN 28 pg (27-31); MEAN CORPUSCULAR HGB CONC 32 g/dL (33-37); MEAN CORPUSCULAR VOLUME 86 fL (80-94); MONOCYTES # (AUTO) 0.4 K/uL (0.8-1.0); MONOCYTES % (AUTO) 4.7 % (1.7-9.3); NEUTROPHILS # (AUTO) 7.6 K/uL (1.8-7.7); NEUTROPHILS % (AUTO) 80.9 % (42.2-75.2); PLATELET COUNT (AUTO) 253 K/uL (140-450); RED BLOOD CELL COUNT(AUTO) 3.12 MIL/uL (4.20-5.40); RED CELL DISTRIBUTION WIDTH 14.2 % (11.6-13.7); WHITE BLOOD COUNT (AUTO) 9.3 K/uL (4.8-10.8)
[2017-07-28] MEDS: PROMETHAZINE 25 MG/ML VIAL IVP PRN ×2 (12:16→20:15)
--- NOTE | 2017-07-28 12:16 | NUR ---
PATIENT COMPLAINING OF NAUSEA AND VOMITING, MEDICATED WITH PHENERGAN ORDERED.
[2017-07-28] MEDS ORDERED: POTASSIUM CHLORIDE 40 MEQ, LIDOCAINE 1% 25 MG in NACL 0.9% 250 ML IV SCH (12:30)
[2017-07-28] MEDS: NACL 0.9% 1,000 ML IV SCH ×2 (13:49→22:57)
--- NOTE | 2017-07-28 15:23 | NUR ---
PATIENT RESTING IN BED, REPORT GIVEN TO ZOFIA WEEKS FOR CONTINUITY OF CARE.
--- NOTE | 2017-07-28 15:24 | NUR ---
RECEIVED HANDOFF REPORT FROM ALFREDO ARMIJO FOR CONTINUITY OF CARE. PT IS IN STABLE CONDITION. NO S/S OF DISTRESS NOTED. PT IS AAOX4 ON ROOM AIR. IV TO R HAND 22G PATENT AND INTACT, INFUSING WELL. RESPIRATIONS ARE EVEN AND UNLABORED. SKIN IS WARM AND DRY TO TOUCH. SKIN IS INTACT. INITIAL ASSESSMENT COMPLETED. PLAN OF CARE DISCUSSED WITH PT AT THE BEDSIDE. ALL SAFETY PRECAUTIONS MET, CALL LIGHT WITHIN REACH, WILL CONTINUE TO MONITOR
--- NOTE | 2017-07-28 15:28 | NUR ---
CM NOTE CONCURRENT REVIEW FAXED TO [facility] / FAX# [phone]
[2017-07-28 16:00] VITALS: BP 102/56
--- NOTE | 2017-07-28 19:11 | NUR ---
GAVE REPORT TO NIGHT NURSE OLMAN ARMIJO FOR CONTINUITY OF CARE, PT IN STABLE CONDITION. NO S/S OF DISTRESS
--- NOTE | 2017-07-28 19:19 | NUR ---
GAVE REPORT TO JAMES RN FOR CONTINUITY OF CARE, PT IN STABLE CONDITION
--- NOTE | 2017-07-28 19:20 | NUR ---
RECEIVED PT IN STABLE CONDITION FROM AM NURSE. AWAKE,ALERT AND ORIENTEDX4. ON MED SURG. NO ACUTE DISTRESS NOTED. NO N/V AT THIS TIME. WITH IVF K RIDER INFUSING WELL ON THE RT HAND #22. NO C/O PAIN NOTED. PLAN OF CARE DISCUSSED AND VERBALIZED UNDERSTANDING. BED ON LOW POSITION. CALL LIGHT PLACED WITHIN EASY REACH. WILL CONTINUE TO MONITOR.
[2017-07-28] MEDS ORDERED: POTASSIUM CHLORIDE 20 MEQ, LIDOCAINE 1% 25 MG in NACL 0.9% 250 ML IV PRN (20:00)
--- NOTE | 2017-07-28 20:15 | NUR ---
PT VOMITED AGAIN. TALKED TO DR. WEST. SHE SAID OK TO GIVE THE PHENERGAN NOW. WILL CONTINUE TO MONITOR.
--- NOTE | 2017-07-28 21:00 | NUR ---
PT REFUSED TO TAKE ALL PO MED AT THIS TIME DUE TO DISCOMFORT OF NAUSEA /VOMITING.
[2017-07-28 22:16] LABS: ANION GAP 14.4 (8-16); CARBON DIOXIDE 22.5 mmol/L (21-32); CREATININE 0.5 mg/dL (0.6-1.3)
[2017-07-28 22:35] LABS: POTASSIUM 2.9 mmol/L (3.5-5.1)
--- NOTE | 2017-07-28 23:00 | NUR ---
SLEEPING AT THIS TIME. NO S/S OF ANY DISCOMFORT NOTED.
[2017-07-29 00:10] VITALS: BP 122/81
--- NOTE | 2017-07-29 01:00 | NUR ---
MADE ROUNDS. ASLEEP. NO S/S OF ANY DISCOMFORT AT THIS TIME. WILL CONTINUE TO MONITOR.
[2017-07-29] MEDS: ONDANSETRON 4 MG/2 ML VIAL IVP PRN ×3 (02:01→18:02)
[2017-07-29] MEDS: PROMETHAZINE 25 MG/ML VIAL IVP PRN ×3 (04:45→19:51)
--- NOTE | 2017-07-29 04:45 | NUR ---
PT VOMITED AGAIN. MEDICATED ORDERED PRN . WILL CONTINUE TO MONITOR.
[2017-07-29] MEDS: PROPYLTHIOURACIL 50 MG TAB PO SCH (05:00)
--- NOTE | 2017-07-29 05:30 | NUR ---
REPORT RECEIVED FROM JAMES RN.PT IS IN STABLE CONDITION.NO S/S OF N/V NOTED NOW.RESTING IN BED.WILL CONTINUE MONITORING.
--- NOTE | 2017-07-29 05:31 | NUR ---
ENDORSED PT IN STABLE CONDITION TO ZOFIA SANFORDKINESIOLOGY PROFESSOR FOR CONTINUITY OF CARE.
[2017-07-29 06:46] LABS: BASOPHILS # (AUTO) 0.2 K/uL (0.00-0.22); BASOPHILS % (AUTO) 2.8 % (0.0-2.0); EOSINOPHILS # (AUTO) 0.1 K/uL (0-0.4); EOSINOPHILS % (AUTO) 0.8 % (0.0-4.0); HEMOGLOBIN 8.8 g/dL (12.0-16.0); LYMPHOCYTES # (AUTO) 1.5 K/uL (2.5-16.5); LYMPHOCYTES % (AUTO) 20.3 % (20.5-51.1); MEAN CORPUSCULAR HEMOGLOBIN 29 pg (27-31); MEAN CORPUSCULAR HGB CONC 34 g/dL (33-37); MEAN CORPUSCULAR VOLUME 85 fL (80-94); MONOCYTES # (AUTO) 0.3 K/uL (0.8-1.0); MONOCYTES % (AUTO) 4.6 % (1.7-9.3); NEUTROPHILS # (AUTO) 5.3 K/uL (1.8-7.7); NEUTROPHILS % (AUTO) 71.5 % (42.2-75.2); PLATELET COUNT (AUTO) 253 K/uL (140-450); RED BLOOD CELL COUNT(AUTO) 3.07 MIL/uL (4.20-5.40); RED CELL DISTRIBUTION WIDTH 14.4 % (11.6-13.7); WHITE BLOOD COUNT (AUTO) 7.4 K/uL (4.8-10.8)
[2017-07-29 07:00] LABS: ANION GAP 16.6 (8-16); CARBON DIOXIDE 20.3 mmol/L (21-32); CREATININE 0.5 mg/dL (0.6-1.3)
[2017-07-29 07:02] LABS: MAGNESIUM 1.6 mg/dL (1.8-2.4); PHOSPHORUS 2.4 mg/dL (2.5-4.9)
[2017-07-29 07:24] LABS: POTASSIUM 2.9 mmol/L (3.5-5.1)
--- NOTE | 2017-07-29 07:29 | NUR ---
PT'S CONDITION IS STABLE.REPORT GIVEN TO AM RN.BS=67.JUICE GIVEN.
--- NOTE | 2017-07-29 07:30 | NUR ---
RECEIVED PT IN STABLE CONDITION FROM SPECIAL EDUCATION PRESCHOOL TEACHER NURSE. PT IS AWAKE,ALERT AND ORIENTEDX4. ON MED SURG. NO ACUTE DISTRESS NOTED. PT HAS VOMITED IN THE VOMITING BAG. WILL ADMINISTER VOMITING MED WHEN DUE. IV NOTED TO THE RIGHT HAND #22 INFUSING WELL. NO C/O PAIN NOTED. BED IN LOW POSITION. CALL LIGHT WITHIN REACH. WILL CONTINUE TO MONITOR.
[2017-07-29] MEDS: BLOOD GLUCOSE MONITORING 1 DEV DEV FS SCH ×3 (07:41→17:13)
[2017-07-29 08:00] VITALS: BP 121/79
[2017-07-29] MEDS ORDERED: LACTOBACILLUS RHAMNOSUS GG 1 EACH CAP PO SCH (09:00)
[2017-07-29] MEDS: DOCUSATE SODIUM 100 MG GELCAP PO SCH (09:00)
[2017-07-29] MEDS: METOPROLOL 25 MG TAB PO SCH (09:00)
[2017-07-29] MEDS: PYRIDOXINE 50 MG TAB PO SCH (09:19)
[2017-07-29] MEDS: NACL 0.9% 1,000 ML IV SCH (09:49)
--- NOTE | 2017-07-29 09:59 | NUR ---
CM NOTE CONCURRENT REVIEW FAXED TO [facility] / FAX# [phone]
[2017-07-29] MEDS ORDERED: POTASSIUM CHLORIDE 40 MEQ, LIDOCAINE 1% 25 MG in NACL 0.9% 250 ML IV ONE (10:25)
[2017-07-29] MEDS ORDERED: MAG SULF 2000 MG/WATER PREMIX 50 ML IV ONE (10:30)
[2017-07-29] MEDS ORDERED: PYRI50TA25 PO (11:05)
[2017-07-29] MEDS ORDERED: LACT10CA PO (11:05)
[2017-07-29] MEDS ORDERED: PTU50 PO ×2 (11:05→19:02)
[2017-07-29] MEDS ORDERED: NITR100C7 PO (11:05)
[2017-07-29] MEDS ORDERED: METO25TA PO (11:05)
[2017-07-29] MEDS ORDERED: POTA10TE30 PO (13:48)
[2017-07-29 16:00] VITALS: BP 100/60
--- NOTE | 2017-07-29 17:13 | NUR ---
BLOOD GLUCOSE 74. OFFERED PT POPSICLE AND JUICE BOX. PT IS EATING THEM NOW.
[2017-07-29] MEDS ORDERED: [UNRECOGNIZED DRUG - CODE] PO (18:55)
[2017-07-29 18:56] LABS: ANION GAP 18.5 (8-16); CARBON DIOXIDE 20.2 mmol/L (21-32); POTASSIUM 3.7 mmol/L (3.5-5.1)
[2017-07-29 18:57] LABS: CREATININE 0.5 mg/dL (0.6-1.3)
--- NOTE | 2017-07-29 19:30 | NUR ---
Seen pt awake, alert and oriented sitting up in bed. Mother at bedside asking questions. Initial assessment done. Safety ensured.
--- NOTE | 2017-07-29 19:30 | NUR ---
PATIENT REPORT GIVEN TO CREATIVE COORDINATOR NURSE AT BEDSIDE. PATIENT IS IN STABLE CONDITION.
--- NOTE | 2017-07-29 19:50 | NUR ---
Pt called complaining of feeling nauseous. Vital signs checked. Pt given Phenergan IVP as ordered. Pt denies any other needs. Call light w/in reach.
[2017-07-29 20:00] VITALS: BP 134/85
--- NOTE | 2017-07-29 21:09 | NUR ---
PAGED DR WEST REGARDING PT'S DISCHARGE. WILL AWAIT FOR CALL BACK.
[2017-07-29 21:20] VITALS: BP 134/85
--- NOTE | 2017-07-29 21:31 | NUR ---
SPOKE TO DR WEST REGARDING PT DISCHARGE AND SHE SAID "YES, SHE'S BEING DISCHARGE TONIGHT." INFORMED HER PT DOESN'T FEEL GOOD AND STILL FEELS NAUSEOUS AND REQUESTING IF SHE CAN LEAVE TOMORROW MORNING. DR WEST SAID "SHE'S DISCHARGE ALREADY." REQUEST DR WEST IF SHE CAN COME AND TALK TO THE PATIENT. SHE AGREED TO COME AND SEE PATIENT.
--- NOTE | 2017-07-29 22:00 | NUR ---
DR WEST CAME AND SPOKE TO THE PATIENT. SEEN PT AND SHE AGREED TO GO HOME. PT'S MOTHER CALLED ASKING WHY PT IS BEING DC TONIGHT. INFORMED HER DR WEST SPOKE TO THE PT ALREADY. SHE SAID, " I CAN'T COME TO PICK HER UP BECAUSE ITS TOO LATE ALREADY AND MY BABY AND PT'S BABY IS ALREADY ASLEEP AND MY LEFT FOR [place]." ASKED FOR HER CONTACT NUMBER FOR CALL BACK- . WILL CALL DR WEST.
--- NOTE | 2017-07-29 22:05 | NUR ---
SPOKE TO DR WEST REGARDING PT'S TRANSPORTATION ISSUE. DR WEST SAID "SHE NEEDS TO GO HOME," "SHE'S AN ADULT", SHE CAN TAKE UBER OR SOMETHING." GAVE PT'S MOTHER CONTACT NUMBER AND DR WEST WILL GIVE PT'S MOTHER A CALL."
--- NOTE | 2017-07-29 22:25 | NUR ---
PT REFUSED TO BE WHEELED OUT AND SAID "MY MOM IS OUTSIDE WAITING." PT LEFT WALKING ACCOMPANIED BY PETERSON REBOLLEDO.
[2017-07-30] MEDS ORDERED: SODIUM PHOS / POTASSIUM PHOS 1 PKT PDR PO SCH (09:00)
== END 2017-07-29 22:23 | disposition home or self-care (01) | DRG 781 ==
LOC: MED 19:00 → MTU 21:55
PROVIDERS: ADMIT Family Medicine Sports Medicine; ATTEND Family Medicine Sports Medicine
DX: O98.812 Other maternal infectious and parasitic diseases complicating pregnancy, second trimester (principal); A41.9 Sepsis, unspecified organism; E44.0 Moderate protein-calorie malnutrition; R65.10 Systemic inflammatory response syndrome (SIRS) of non-infectious origin without acute organ dysfunction; O16.2 Unspecified maternal hypertension, second trimester; O23.42 Unspecified infection of urinary tract in pregnancy, second trimester; E87.6 Hypokalemia; O21.0 Mild hyperemesis gravidarum; D64.9 Anemia, unspecified; E78.5 Hyperlipidemia, unspecified; O26.892 Other specified pregnancy related conditions, second trimester; O99.012 Anemia complicating pregnancy, second trimester; O99.282 Endocrine, nutritional and metabolic diseases complicating pregnancy, second trimester; F12.188 Cannabis abuse with other cannabis-induced disorder; O99.89 Other specified diseases and conditions complicating pregnancy, childbirth and the puerperium; Z91.14 Patient's other noncompliance with medication regimen; Z3A.14 14 weeks gestation of pregnancy; Z68.25 Body mass index [BMI] 25.0-25.9, adult
CPT/HCPCS: 36415; 80048; 80053; 80305; 82948; 83605; 83690; 83735; 84100; 84702; 85025; 85610; 85730; 87040; 87081; 87086; 93005; 96361; 96374; 96375; 99285; J0696; J1815; J2001; J2405; J2550; J3475; J3480; J7030; J7060; J8597

== ENCOUNTER 2018-01-05 12:54 | Observation (INO) | payer OTHER, BC ==
[~2018-01-05] VITALS: Ht 162.6 cm; Wt 82.1 kg
[~2018-01-05 12:54] MED LIST changes: +LACT10CA PO; +METO25TA PO; +POTA10TE30 PO; +PTU50 PO; +PYRI50TA25 PO; +[UNRECOGNIZED DRUG - CODE] PO
[2018-01-05 13:37] VITALS: BP 108/63
[2018-01-05] MEDS ORDERED: FERR325E14 PO (15:15)
== END 2018-01-05 15:30 | disposition home or self-care (01) ==
LOC: MLD 12:54
PROVIDERS: ADMIT Obstetrics & Gynecology; ATTEND Obstetrics & Gynecology
DX: O26.893 Other specified pregnancy related conditions, third trimester (principal); R10.2 Pelvic and perineal pain; Z3A.38 38 weeks gestation of pregnancy
CPT/HCPCS: 59025; 76819; 81000; G0378; Q0092

== ENCOUNTER 2018-01-06 21:35 | Inpatient (IN) | payer BC, OTHER ==
[~2018-01-06] VITALS: Ht 160 cm; Wt 74.8 kg
[~2018-01-06 21:35] MED LIST changes: +FERR325E14 PO; -LACT10CA PO; -MECL-272 PO; -METO25TA PO; -POTA10TE30 PO; -PTU50 PO; -PYRI50TA25 PO; -[UNRECOGNIZED DRUG - CODE] PO
[2018-01-06 22:21] VITALS: BP 105/60
[2018-01-06] MEDS ORDERED: NALBUPHINE 10 MG/ML AMP IVP PRN (22:55)
[2018-01-06] MEDS ORDERED: LACTATED RINGERS 1,000 ML IV SCH (22:55)
[2018-01-06] MEDS ORDERED: METHYLERGONOVINE 0.2 MG/ML AMP IM PRN (22:55)
[2018-01-06] MEDS ORDERED: CARBOPROST 250 MCG/ML AMP IM PRN (22:55)
[2018-01-06] MEDS ORDERED: PROMETHAZINE 25 MG/ML VIAL IVP PRN (22:55)
[2018-01-06] MEDS ORDERED: OXYTOCIN 20 UNITS in LACTATED RINGERS 1,000 ML IV SCH (22:55)
[2018-01-06] MEDS ORDERED: OXYTOCIN 10 UNITS/ML VIAL IM SCH (23:30)
[2018-01-07 00:03] LABS: BASOPHILS # (AUTO) 0.1 K/uL (0.00-0.22); BASOPHILS % (AUTO) 1.1 % (0.0-2.0); EOSINOPHILS # (AUTO) 0.1 K/uL (0-0.4); EOSINOPHILS % (AUTO) 0.7 % (0.0-4.0); HEMATOCRIT 25.9 % (36-48); HEMOGLOBIN 8.5 g/dL (12.0-16.0); LYMPHOCYTES # (AUTO) 2.4 K/uL (2.5-16.5); LYMPHOCYTES % (AUTO) 34.9 % (20.5-51.1); MEAN CORPUSCULAR HEMOGLOBIN 27 pg (27-31); MEAN CORPUSCULAR HGB CONC 33 g/dL (33-37); MEAN CORPUSCULAR VOLUME 82.4 fL (80-94); MONOCYTES # (AUTO) 0.4 K/uL (0.8-1.0); MONOCYTES % (AUTO) 6.1 % (1.7-9.3); NEUTROPHILS # (AUTO) 3.9 K/uL (1.8-7.7); NEUTROPHILS % (AUTO) 57.2 % (42.2-75.2); PLATELET COUNT (AUTO) 236 K/uL (140-450); RED BLOOD CELL COUNT(AUTO) 3.14 MIL/uL (4.20-5.40); RED CELL DISTRIBUTION WIDTH 14.1 % (11.6-13.7); WHITE BLOOD COUNT (AUTO) 6.9 K/uL (4.8-10.8)
[2018-01-07 00:12] LABS: APPEARANCE,URINE HAZY (CLEAR); BILIRUBIN,URINE NEGATIVE (NEGATIVE); BLOOD, URINE NEGATIVE (NEGATIVE); COLOR,URINE YELLOW (YELLOW); LEUKOCYTE ESTERASE ,URINE 3+ (NEGATIVE); NITRITE, URINE NEGATIVE (NEGATIVE); UGLUCOSE NEGATIVE (NEGATIVE)
[2018-01-07 00:17] LABS: CARBON DIOXIDE 21.9 mmol/L (21-32); CREATININE 0.7 mg/dL (0.6-1.3); POTASSIUM 3.9 mmol/L (3.5-5.1)
[2018-01-07 00:23] LABS: ALBUMIN 2.2 g/dL (3.4-5.0); TOTAL BILIRUBIN 0.2 mg/dL (0.0-1.0)
[2018-01-07] MEDS ORDERED: OXYTOCIN 20 UNITS/LR PREMIX 1,000 ML IV ONE (00:24)
[2018-01-07 00:27] LABS: RBC,URINE 0-5 (RARE) /HPF (0-5); WBC,URINE 20-60 /HPF (0-5)
[2018-01-07] MEDS ORDERED: NALBUPHINE 10 MG/ML AMP ONE (03:16)
[2018-01-07] MEDS ORDERED: PROMETHAZINE 25 MG/ML VIAL ONE (03:16)
[2018-01-07 03:49] LABS: BARBITURATE, URINE NEG. ng/ml (NEG <=200); BENZODIAZEPINE, URINE NEG. ng/mL (NEG <=200); CANNABINOID, URINE NEG. ng/mL (NEG <=50); COCAINE, URINE NEG. ng/mL (NEG <=300); OPIATE, URINE NEG. ng/mL (NEG <=2000); PHENCYCLIDINE SCREEN,URINE NEG. ng/mL (NEG <=25)
[2018-01-07] MEDS ORDERED: OXYTOCIN 10 UNITS/ML VIAL ONE (04:38)
--- NOTE | 2018-01-07 06:33 | NUR ---
PATIENT HAS BEEN SCREENED AND CATEGORIZED LOW NUTRITION RISK. PATIENT WILL BE SEEN WITHIN 7 DAYS OF ADMISSION. 01/13/18 LAURA CRAWFORD MBA, RD
[2018-01-07] MEDS ORDERED: BENZOCAINE/MENTHOL 20%-0.5% 60 GM CAN TP PRN (08:50)
[2018-01-07] MEDS ORDERED: oxyCODONE/APAP 5/325 MG 1 TAB TAB PO PRN (08:50)
[2018-01-07] MEDS ORDERED: MEASLES, MUMPS, AND RUBELLA 1 VIAL SQVAC PRN (08:50)
[2018-01-07] MEDS ORDERED: TEMAZEPAM 15 MG CAP PO PRN (08:50)
[2018-01-07] MEDS ORDERED: SODIUM PHOSPHATE 118 ML ENEM RC PRN (08:50)
[2018-01-07] MEDS ORDERED: IBUPROFEN 800 MG TAB PO PRN (10:40)
[2018-01-07] MEDS: HYDROcodone/APAP 5/325 MG 1 TAB TAB PO PRN ×2 (14:43→18:42)
[2018-01-07] MEDS ORDERED: DOCUSATE SOD/SENNA 50/8.6 MG 1 TAB PO SCH (21:00)
[2018-01-08] MEDS: HYDROcodone/APAP 5/325 MG 1 TAB TAB PO PRN (01:19)
[2018-01-08 07:06] LABS: HEMATOCRIT 22.8 % (36-48); HEMOGLOBIN 7.4 g/dL (12.0-16.0)
[2018-01-08] MEDS ORDERED: IBUP-2213 PO (10:54)
== END 2018-01-08 12:00 | disposition home or self-care (01) | DRG 775 ==
LOC: MLD 21:35 → OBSVTOIN 23:03 → MFCC 01-07 08:58
PROVIDERS: ADMIT Obstetrics & Gynecology; ATTEND Obstetrics & Gynecology
PROC: 10E0XZZ Delivery of Products of Conception, External Approach (ICD-10-PCS; principal; 2018-01-07)
PROC: 10907ZC Drainage of Amniotic Fluid, Therapeutic from Products of Conception, Via Natural or Artificial Opening (ICD-10-PCS; 2018-01-07)
PROC: 3E0234Z Introduction of Serum, Toxoid and Vaccine into Muscle, Percutaneous Approach (ICD-10-PCS; 2018-01-08)
DX: O77.0 Labor and delivery complicated by meconium in amniotic fluid (principal); Z37.0 Single live birth; Z3A.38 38 weeks gestation of pregnancy; Z23 Encounter for immunization
CPT/HCPCS: 36415; 51702; 59409; 80053; 80305; 81001; 85018; 85025; 86592; 86886; 86900; 86901; 87086; 90715; G0378; J2300; J2550; J2590; J7120

== ENCOUNTER 2019-06-12 15:20 | Emergency (ER) | payer BC, OTHER ==
[~2019-06-12] VITALS: Ht 162.6 cm; Wt 84.8 kg
[~2019-06-12 15:20] MED LIST changes: +IBUP-2213 PO; -ONDA4TAB PO
[2019-06-12 15:59] VITALS: BP 134/57
--- NOTE | 2019-06-12 16:25 | NUR ---
Patient states she has had burning when she urinates as well as seeing blood on the tissue when she wipes after urinating. She states the pain when she urniates is a 8/10 and feels better after voiding. She also states she has had pain after intercourse with cramping that lasts for about 60 minutes afterwards with spotting of blood. The patient has an old RX of Macrobid 100mg at home, and took one table today because she thought she may have a urniary tract infection. The patient denies any fever, chills. She has had her IUD in for one year.
--- NOTE | 2019-06-12 16:47 | NUR ---
Assisted RAULITO Donald with pelvic exam. Pelvic swab sent to lab.
[2019-06-12 17:31] LABS: BILIRUBIN,URINE NEGATIVE (NEGATIVE); BLOOD, URINE 3+ (NEGATIVE); COLOR,URINE YELLOW (YELLOW); LEUKOCYTE ESTERASE ,URINE 2+ (NEGATIVE); NITRITE, URINE NEGATIVE (NEGATIVE); UGLUCOSE NEGATIVE (NEGATIVE)
[2019-06-12 17:32] LABS: APPEARANCE,URINE CLOUDY (CLEAR)
[2019-06-12 17:51] LABS: WBC,URINE TOO MANY TO COUNT /HPF (0-5)
[2019-06-12] MEDS ORDERED: cefTRIAXone 250 MG in LIDOCAINE MPF 1% 0.9 ML IM ONE (18:00)
[2019-06-12] MEDS ORDERED: AZITHROMYCIN 250 MG TAB PO ONE (18:00)
[2019-06-12 18:30] VITALS: BP 124/73
[2019-06-14 06:07] LABS: CHLAMYDIA TRACHOMATIS AMP DNA Positive (Negative)
== END 2019-06-12 18:30 | disposition home or self-care (01) ==
LOC: MED 15:20
DX: N39.0 Urinary tract infection, site not specified (principal); Z11.3 Encounter for screening for infections with a predominantly sexual mode of transmission; Z79.1 Long term (current) use of non-steroidal anti-inflammatories (NSAID); Z79.899 Other long term (current) drug therapy
CPT/HCPCS: 36415; 81001; 81025; 87070; 87086; 87205; 87210; 96372; 99283; J0696; J2001; 87491